=== PATIENT | male | born 1930 | race Caucasian/White ===

== ENCOUNTER 2016-12-13 19:58 | Inpatient (IN) | payer MEDICARE, OTHER ==
[~2016-12-13] VITALS: Ht 172.7 cm; Wt 81.7 kg
[2016-12-13] MEDS ORDERED: morphine 4 MG/ML VIAL IV STA (20:19)
[2016-12-13] MEDS ORDERED: ALLO300T2 PO (20:38)
[2016-12-13] MEDS ORDERED: TAMS0.4C2 PO (20:39)
[2016-12-13] MEDS ORDERED: ERGO500037 PO (20:39)
[2016-12-13] MEDS ORDERED: TRAM-40 PO (20:40)
[2016-12-13] MEDS ORDERED: GABA300C16 PO (20:40)
[2016-12-13] MEDS ORDERED: DULR PR (20:41)
[2016-12-13] MEDS ORDERED: FINA5TAB4 PO (20:41)
[2016-12-13] MEDS ORDERED: APIX5TAB PO (20:43)
[2016-12-13] MEDS ORDERED: OMEG1CAP2 PO (20:43)
[2016-12-13] MEDS ORDERED: LATA2.5D2 LEFT EYE (20:44)
[2016-12-13] MEDS ORDERED: PRD1OP5 RIGHT EYE (20:45)
[2016-12-13 20:47] LABS: ADD SCAN DIFF NO
[2016-12-13 20:48] LABS: BASOPHILS % 0.3 % (0.0-2.0); EOSINOPHILS % 0.1 % (0.0-7.0); HEMATOCRIT 46.3 % (42.0-52.0); HEMOGLOBIN 15.7 g/dl (14.0-18.0); LYMPHOCYTES # 1.7 10^3/ul (0.8-2.9); LYMPHOCYTES % 17.7 % (15.0-51.0); MEAN CORPUSCULAR HGB CONC 33.9 g/dl (32.0-37.0); MEAN CORPUSCULAR VOLUME 100.2 fl (82.0-101.0); MEAN PLATELET VOLUME 12.4 fl (7.4-10.4); MONOCYTE # 0.9 10^3/ul (0.3-0.9); MONOCYTES % 9.1 % (0.0-11.0); NEUTROPHIL # 6.8 10^3/ul (1.6-7.5); NEUTROPHILS % 72.4 % (39.0-77.0); PLATELET COUNT 117 10^3/UL (140-415); RED BLOOD COUNT 4.62 10^6/ul (4.70-6.10); RED CELL DISTRIBUTION WIDTH 15.3 % (11.5-14.5); WHITE BLOOD COUNT 9.3 10^3/ul (4.8-10.8)
[2016-12-13 20:58] LABS: INR 1.52; POTASSIUM 4.8 mmol/L (3.5-5.1); PROTIME 18.4 Sec (12.2-14.2); PT RATIO 1.4
[2016-12-13 20:59] LABS: PARTIAL THROMBOPLASTIN TIME 34.7 Sec (25.0-35.0)
[2016-12-13 21:00] LABS: CREATININE 1.54 mg/dl (0.61-1.24)
[2016-12-13 21:01] LABS: CALCIUM 9.4 mg/dl (8.4-10.2)
--- NOTE | 2016-12-13 21:05 | RADRPT ---
PROCEDURE: XR Chest. CLINICAL INDICATION: Chest pain. TECHNIQUE: Single frontal view. COMPARISON: 02/19/2009. FINDINGS: There is mild atelectasis or scarring at the lung bases. The lungs are otherwise clear. The heart is enlarged. There is calcification in the aorta consistent with atherosclerosis. There is no pleural effusion. There is no pneumothorax. IMPRESSION: 1. Mild atelectasis or scarring at the lung bases. 2. Cardiomegaly and atherosclerosis. RPTAT: QQ .Pelon Ardon MD, MD Date Time Electronically viewed and signed by .Pelon Ardon MD, MD on 12/13/2016 21:05 .R/
[2016-12-13 21:12] LABS: TROPONIN-I 0.018 ng/ml (0.00-0.12)
--- NOTE | 2016-12-13 21:36 | RADRPT ---
PROCEDURE: XR Right Hip. CLINICAL INDICATION: Trauma. Right hip pain. TECHNIQUE: Two views. Frontal and lateral. COMPARISON: No prior studies are available for comparison. FINDINGS: There is an acute subcapital fracture of the right hip with mild angulation and displacement. There is no other fracture and there is no dislocation. Vascular calcifications are present consistent with atherosclerosis. Articular surfaces are intact. There is no lytic or blastic lesion. There is no radiopaque foreign body. IMPRESSION: 1. Acute subcapital fracture of the right hip with mild angulation and displacement. 2. Atherosclerosis. RPTAT: QQ .Pelon Ardon MD, MD Date Time Electronically viewed and signed by .Pelon Ardon MD, MD on 12/13/2016 21:36 .R/
--- NOTE | 2016-12-13 21:51 | ERA ---
ER Documentation Chief Complaint Date/Time DATE: 12/13/16 TIME: 21:49 Chief Complaint S/P fall, pt c/c right leg pain HPI This is an 86-year-old male presents to the emergency room for evaluation of right-sided leg pain after a ground-level fall he had this morning. The patient denies any head injury loss of consciousness. The patient states that he is having an achy pain in the right hip worse with movement of the hip. The patient is unable to give a detailed history, and most of the history is obtained from the patient's daughter who is at bedside. ROS All systems reviewed and are negative except as per history of present illness. Medications Home Meds Reported Medications Prednisolone Acetate* (Pred Forte*) 5 Ml Susp, 1 DROP RIGHT EYE DAILY, EA 12/13/16 Latanoprost (Latanoprost) 2.5 Ml Drops, 1 DROP LEFT EYE QHS, #1 BOTTLE 12/13/16 Apixaban* (Eliquis*) 5 Mg Tablet, 5 MG PO BID, TAB 12/13/16 Snook-3 Acid Ethyl Esters (Lovaza) 1 Gm Capsule, 1 GM PO BID, CAP 12/13/16 Finasteride* (Finasteride*) 5 Mg Tablet, 5 MG PO DAILY, TAB 12/13/16 Bisacodyl* (Bisacodyl*) 10 Mg Supp, 10 MG DC DAILY, SUPP 12/13/16 Gabapentin* (Gabapentin*) 300 Mg Capsule, 300 MG PO QHS, #30 CAP 12/13/16 Tramadol Hcl* (Ultram*) 50 Mg Tablet, 50 MG PO Q6H Y for PAIN, TAB 12/13/16 Ergocalciferol (Vitamin D2) (VITAMIN D2) 50,000 Unit Capsule, 02853 UNIT PO Q7D , CAP 12/13/16 Tamsulosin Hcl* (Tamsulosin Hcl*) 0.4 Mg Cap.er.24h, 0.4 MG PO DAILY, CAP 12/13/16 Allopurinol* (Allopurinol*) 300 Mg Tablet, 300 MG PO DAILY, TAB 12/13/16 Allergies Allergies: Coded Allergies: No Known Allergy (Verified , 12/13/16) PMhx/Soc History of Surgery: Yes (Appendectomy ) Hx Neurological Disorder: Yes (Stroke about 15 y) Hx Respiratory Disorders: Yes (PNU) Hx Cardiac Disorders: Yes (silent IA) Hx Alcohol Use: Yes (occasional) Hx Substance Use: No Hx Tobacco Use: Yes (pack a day) Smoking Status: Current every day smoker Physical Exam Vitals Vital Signs Date Time Temp Pulse Resp B/P Pulse Ox O2 Delivery O2 Flow Rate FiO2 12/13/16 20:05 98.6 78 20 152/70 100 Physical Exam INITIAL VITAL SIGNS: Reviewed by me GENERAL: The patient is well developed and appropriate for usual state of health in no apparent distress HEENT: Right corneal clouding, left pupils reactive, EOMI. There is no scleral icterus. NECK: C-spine is soft and supple, there is no meningismus. There is no cervical lymphadenopathy. LUNGS: Clear to auscultation bilaterally. There are no rales, wheezes or rhonchi. HEART: Regular rate and rhythm, no murmurs, clicks, rubs or gallops. ABDOMEN: Soft, non-tender, non-distended. There are bowel sounds in all four quadrants. No rebound or guarding. EXTREMITIES: External rotation of right lower extremity there is no peripheral cyanosis or edema. No focal swelling or erythema. NEUROLOGICAL: The patient moves all four extremities with 5/5 strength. Cranial nerves II - XII are intact. Normal gait. Alert and oriented SKIN: There is no apparent rash or petechiae. HEME/LYMPHATIC: There is no evidence of excessive bruising or lymphedema. PSYCHIATRIC: The patient does not appear anxious or depressed. Result Diagram: 12/13/16200412/13/162004 Results 24 hrs Laboratory Tests Test 12/13/16 20:05 White Blood Count 9.310^3/ul Red Blood Count 4.6210^6/ul Hemoglobin 15.7g/dl Hematocrit 46.3% Mean Corpuscular Volume 100.2fl Mean Corpuscular Hemoglobin 34.0pg Mean Corpuscular Hemoglobin Concent 33.9g/dl Red Cell Distribution Width 15.3% Platelet Count 58931^3/UL Mean Platelet Volume 12.4fl Neutrophils % 72.4% Lymphocytes % 17.7% Monocytes % 9.1% Eosinophils % 0.1% Basophils % 0.3% Nucleated Red Blood Cells % 0.0/100WBC Neutrophils # 6.810^3/ul Lymphocytes # 1.710^3/ul Monocytes # 0.910^3/ul Eosinophils # 0.010^3/ul Basophils # 0.010^3/ul Nucleated Red Blood Cells # 0.010^3/ul Prothrombin Time 18.4Sec Prothrombin Time Ratio 1.4 INR International Normalized Ratio 1.52 Activated Partial Thromboplast Time 34.7Sec Sodium Level 137mmol/L Potassium Level 4.8mmol/L Chloride Level 104mmol/L Carbon Dioxide Level 21mmol/L Anion Gap 17 Blood Urea Nitrogen 28mg/dl Creatinine 1.54mg/dl Glucose Level 118mg/dl Calcium Level 9.4mg/dl Troponin I 0.018ng/ml Current Medications Medications (Trade) Dose Ordered Sig/Carina Route PRN Reason Start Time Stop Time Status Last Admin Dose Admin Morphine Sulfate (morphine) 4 mg ONCE STAT IV 12/13/16 20:19 12/13/16 20:20 DC 12/13/16 20:44 Ondansetron HCl (Zofran Inj) 4 mg BRIDGE ORDER PRN IV NAUSEA AND/OR VOMITING 12/13/16 22:00 12/14/16 21:59 Acetaminophen (Tylenol Tab) 650 mg ER BRIDGE PRN PO MILD PAIN/FEVER 12/13/16 22:00 12/14/16 21:59 Procedures/MDM EKG: Rate/Rhythm: [Normal Sinus Rhythm] QRS, ST, T-waves: [No changes consistent w/ acute ischemia] Impression: [No evidence of ischemia or arrhythmia] Chest X-ray 1V Interpreted by me: Soft Tissue: No acute abnormalities Bones: No acute abnormalities Mediastinum/Cardiac Silhouette/Lungs: [No acute abnormalities] X-ray Hip 2V Interpreted by me: Bones: Right-sided subcapital fracture Joints: [No dislocation] Foreign body: [None] This 86-year-old male presents to the emergency room for evaluation of right- sided leg pain after a ground-level fall. This patient did have an externally rotated leg on my examination. I did obtain lab work and x-ray of the hip which did confirm my suspicion of a right-sided hip fracture. This patient does have a subcapital hip fracture. He is on Xarelto at this time for a DVT on the left lower extremity. This patient is hemodynamically stable at this time. He will be placed in for admission at this time on her [facility] floor under the care of Dr. carrillo. I have contacted our orthopedic surgeon try on baster, Dr. Woody who agrees to evaluate this patient. I have relayed this patient's information to the family members were at bedside and they are in agreement with her disposition for admission at this time. Departure Diagnosis: Primary Impression: Subcapital fracture of neck of right femur Additional Impressions: Fall with significant injury Renal insufficiency Condition: BRENDAN Chopra DO Dec 13, 2016 21:51
[2016-12-13] MEDS ORDERED: ONDANSETRON 4 MG INJ IV PRN (22:00)
[2016-12-13] MEDS ORDERED: ACETAMINOPHEN 325 MG TAB PO PRN (22:00)
[2016-12-13 23:53] VITALS: TEMP 98.6
[2016-12-14 00:40] VITALS: Ht 172.7 cm; Wt 81.7 kg
[2016-12-14 00:45] VITALS: BP 132/63; PULSE 68; RESP 18
[2016-12-14] MEDS ORDERED: traMADol 50 MG TAB PO PRN (01:30)
[2016-12-14] MEDS ORDERED: ONDANSETRON 4 MG INJ IV PRN (01:30)
[2016-12-14] MEDS: morphine 2 MG INJ IV PRN ×3 (02:13→20:21)
[2016-12-14] MEDS ORDERED: BISACODYL 10 MG SUPP PR PRN (03:30)
[2016-12-14] MEDS: NICOTINE (21 MG/24 HR) PATCH TRANSDERM SCH (04:40)
[2016-12-14 05:09] LABS: ADD SCAN DIFF NO
[2016-12-14 05:18] LABS: BASOPHIL # 0.1 10^3/ul (0.0-0.1); BASOPHILS % 0.5 % (0.0-2.0); EOSINOPHILS # 0.2 10^3/ul (0.0-0.5); EOSINOPHILS % 1.6 % (0.0-7.0); HEMATOCRIT 40.2 % (42.0-52.0); HEMOGLOBIN 13.5 g/dl (14.0-18.0); LYMPHOCYTES # 2.6 10^3/ul (0.8-2.9); LYMPHOCYTES % 27.9 % (15.0-51.0); MEAN CORPUSCULAR HEMOGLOBIN 34.2 pg (29.0-33.0); MEAN CORPUSCULAR HGB CONC 33.6 g/dl (32.0-37.0); MEAN CORPUSCULAR VOLUME 101.8 fl (82.0-101.0); MONOCYTES % 10.9 % (0.0-11.0); NEUTROPHIL # 5.5 10^3/ul (1.6-7.5); NEUTROPHILS % 58.7 % (39.0-77.0); PLATELET COUNT 111 10^3/UL (140-415); RED BLOOD COUNT 3.95 10^6/ul (4.70-6.10); RED CELL DISTRIBUTION WIDTH 15.2 % (11.5-14.5); WHITE BLOOD COUNT 9.4 10^3/ul (4.8-10.8)
[2016-12-14 05:33] LABS: INR 1.52; PROTIME 18.4 Sec (12.2-14.2); PT RATIO 1.4
[2016-12-14 05:34] LABS: ALBUMIN 3.4 g/dl (3.3-4.9); PARTIAL THROMBOPLASTIN TIME 37.8 Sec (25.0-35.0); POTASSIUM 4.7 mmol/L (3.5-5.1)
[2016-12-14 05:36] LABS: CREATININE 1.85 mg/dl (0.61-1.24)
[2016-12-14 05:37] LABS: ALBUMIN/GLOBULIN RATIO 1.25; BILIRUBIN,INDIRECT 0.6 mg/dl (0-1.1); BILIRUBIN,TOTAL 0.6 mg/dl (0.2-1.3); CALCIUM 8.9 mg/dl (8.4-10.2); PHOSPHORUS 4.5 mg/dl (2.5-4.9); TOTAL PROTEIN 6.1 g/dl (6.1-8.1)
[2016-12-14 05:38] LABS: MAGNESIUM 1.7 mg/dl (1.7-2.5)
[2016-12-14 05:48] LABS: TROPONIN-I 0.034 ng/ml (0.00-0.12)
[2016-12-14 06:00] LABS: CK-MB 3.66 ng/ml (0.0-2.4)
[2016-12-14 08:08] VITALS: BP 125/61; RESP 16
--- NOTE | 2016-12-14 08:48 | HP ---
Date/Time of Note Date/Time of Note DATE: 12/14/16 TIME: 08:40 Assessment/Plan VTE Prophylaxis VTE Prophylaxis Intervention: other (eliquis) Lines/Catheters IV Catheter Type (from Nrs): Saline Lock Assessment/Plan Assessment/Plan IMPRESSION 1. Right HIP fracture s/p GLF 2. History of CVA 3. History of BPH 4. History of CKD 5. 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 History of CKD PLAN - Awaiting Ortho Eval (Dr. Woody) - Pain mgmt - Cardiology consult for clearance - Will keep NPO after breakfast until seen by Ortho - Will decrease his home dose of eliquis given renal insufficiency - avoid nephrotoxins HPI/ROS Admit Date/Time Admit Date/Time Dec 13, 2016 at 21:47 Hx of Present Illness This is an 86-year-old male with hx of CVA, BPH, CKD, TN, CKD who presents to the emergency room for evaluation of right-sided leg pain after a ground-level fall he had this morning. The patient denies any head injury loss of consciousness. The patient states that he is having an achy pain in the right hip worse with movement of the hip. In the ER, imaging showed Right Hip fracture. . PMH/Family/Social Social History Smoking Status: Current every day smoker Exam/Review of Systems Vital Signs Vitals Vital Signs Date Time Temp Pulse Resp B/P Pulse Ox O2 Delivery O2 Flow Rate FiO2 12/14/16 08:08 97.9 69 16 125/61 93 12/13/16 23:53 Room Air Intake and Output 12/13/16 12/13/16 12/14/16 15:00 23:00 07:00 Intake Total 480 ml Output Total 300 ml Balance 180 ml Exam Constitutional: other (sleepy but arousable. no acute distress) Head: atraumatic, normocephalic Eyes: EOMI, PERRL Respiratory: clear to auscultation, normal air movement Cardiovascular: regular rate and rhythm Gastrointestinal: non-tender, soft Extremities: other (right hip tenderness) Labs Result Diagram: 12/14/16 0435 12/14/16 0435 Medications Medications Current Medications Allopurinol (Zyloprim) 300 mg DAILY PO ; Start 12/14/16 at 09:00 Ergocalciferol (Drisdol) 50,000 unit Q7D PO ; Start 12/14/16 at 09:00 Finasteride (Proscar) 5 mg DAILY PO ; Start 12/14/16 at 09:00 Gabapentin (Neurontin) 300 mg QHS PO ; Start 12/14/16 at 21:00 Latanoprost (Xalatan) 1 drop QHS LEFT EYE ; Start 12/14/16 at 21:00 Prednisolone Acetate (Pred-Forte 1%) 1 drop DAILY RIGHT EYE ; Start 12/14/16 at 09:00 Tamsulosin HCl (Flomax) 0.4 mg DAILY@21 PO ; Start 12/14/16 at 21:00 Tramadol HCl (Ultram) 50 mg Q6H PRN PO PAIN; Start 12/14/16 at 01:30 Nicotine (Nicoderm 21 Mg/ 24hr) 1 patch DAILY TRANSDERM Last administered on t 04:40; Admin Dose 1 PATCH; Start 12/14/16 at 09:00 Morphine Sulfate (morphine) 2 mg Q4H PRN IV PAIN Last administered on 12/14/16 02:13; Admin Dose 2 MG; Start 12/14/16 at 01:30 Ondansetron HCl (Zofran Inj) 4 mg Q6H PRN IV NAUSEA AND/OR VOMITING; Start 12/14 at 01:30 Apixaban (Eliquis) 5 mg DAILY PO ; Start 12/14/16 at 09:00 Bisacodyl (Dulcolax Supp) 10 mg DAILY PRN DC CONSTIPATION; Start 12/14/16 at 03: 30 Fish Oil (Fish Oil) 1,000 mg BID PO ; Start 12/14/16 at 09:00 NAM LANDRY MD Dec 14, 2016 08:47
[2016-12-14] MEDS: APIXABAN 5 MG TABLET PO SCH (09:00)
[2016-12-14] MEDS ORDERED: ERGOCALCIFEROL 50,000 UNIT CAP PO SCH (09:00)
[2016-12-14] MEDS ORDERED: FISH OIL 1,000 MG CAP PO SCH (09:00)
[2016-12-14] MEDS: FINASTERIDE 5 MG TAB PO SCH (09:51)
[2016-12-14] MEDS: ALLOPURINOL 300 MG TAB PO SCH (09:51)
[2016-12-14] MEDS: PREDNISOLONE ACET 1% 5 ML OPH RIGHT EYE SCH (09:53)
--- NOTE | 2016-12-14 10:13 | PN ---
Date/Time of Note Date/Time of Note DATE: 12/14/16 TIME: 10:08 Assessment/Plan VTE Prophylaxis VTE Prophylaxis Intervention: other Lines/Catheters IV Catheter Type (from Rust): Saline Lock Assessment/Plan Problems: (1) BPH (benign prostatic hyperplasia) Status: Chronic Comment: We will check postvoid residual. Qualifiers: Prostatic enlargement morphology: unspecified morphology Lower urinary tract symptom presence: presence of symptoms unspecified Qualified Code: N40.0 - Benign prostatic hyperplasia, presence of lower urinary tract symptoms unspecified, unspecified morphology (2) History of photovaporization of prostate Status: Chronic Comment: Noted. (3) Chronic kidney disease, stage 3 Status: Chronic Comment: He has been stable. Please note that historically he has had worse renal function of this hospital in 2008. From this perspective he is clear to proceed with surgical repair of the hip (4) Alcohol abuse Status: Chronic Comment: He has been 8 days since his last cocktail. He will be placed on thiamine, and will observe for any signs of withdrawal which I doubt that we will have an issue with (5) Peripheral vascular disease Status: Chronic Comment: Noted. This is not activated and or an indication to not proceed with surgery. According family had a full cardiac workup 2 years ago that was negative. (6) Deep vein thrombosis (DVT) of left lower extremity Onset Date: ~ 12/03/2016 Status: Acute Comment: He had been on Eliquis which is why stopped his alcohol. He had a mechanical ground-level fall with a hip fracture. I will hold the Eliquis in preparation for him to have surgery tomorrow. After that he will resume his Eliquis renally dose adjusted Qualifiers: Affected thrombotic vein of extremity: tibial Chronicity: acute Qualified Code: I82.442 - Acute deep vein thrombosis (DVT) of tibial vein of left lower extremity (7) Subcapital fracture of neck of right femur Status: Acute Comment: He will be seen by orthopedics today. Spine for seasonal opinion that he is clear for surgery Qualifiers: Encounter type: initial encounter Fracture type: closed Qualified Code: S72.011A - Subcapital fracture of neck of right femur, closed, initial encounter (8) Tobacco abuse Status: Chronic Comment: Notable keep an eye on this. Please note he has had no symptoms or signs to suggest chronic lung disease. He has been counseled on discontinuation of smoking rationale risks benefits and goals (9) Hyperlipidemia Status: Chronic Comment: On treatment Qualifiers: Hyperlipidemia type: mixed hyperlipidemia Qualified Code: E78.2 - Mixed hyperlipidemia Subjective 24 Hr Interval Summary Free Text/Dictation Patient and family at bedside translating for this gentleman who speaks [place] Citizen and [place]ian. Please note that 2 of the 3 children are MDs, and extremely helpful and cooperative Constitutional: no complaints Respiratory: no complaints Cardiovascular: no complaints Gastrointestinal: no complaints Genitourinary: no complaints Exam/Review of Systems Vital Signs Vitals Vital Signs Date Time Temp Pulse Resp B/P Pulse Ox O2 Delivery O2 Flow Rate FiO2 12/14/16 08:08 97.9 69 16 125/61 93 12/13/16 23:53 Room Air Intake and Output 12/13/16 12/13/16 12/14/16 15:00 23:00 07:00 Intake Total 480 ml Output Total 300 ml Balance 180 ml Exam Constitutional: alert, oriented Neck: non-tender, supple Respiratory: clear to auscultation, normal air movement Cardiovascular: nl pulses, regular rate and rhythm Results Result Diagram: 12/14/16 0435 12/14/16 0435 Results 24 hrs Laboratory Tests Test 12/13/16 20:05 12/14/16 04:35 White Blood Count 9.3 9.4 Red Blood Count 4.62 L 3.95 L Hemoglobin 15.7 13.5 L Hematocrit 46.3 40.2 L Mean Corpuscular Volume 100.2 101.8 H Mean Corpuscular Hemoglobin 34.0 H 34.2 H Mean Corpuscular Hemoglobin Concent 33.9 33.6 Red Cell Distribution Width 15.3 H 15.2 H Platelet Count 117 L 111 L Mean Platelet Volume 12.4 H 12.0 H Neutrophils % 72.4 58.7 Lymphocytes % 17.7 27.9 Monocytes % 9.1 10.9 Eosinophils % 0.1 1.6 Basophils % 0.3 0.5 Nucleated Red Blood Cells % 0.0 0.0 Neutrophils # 6.8 5.5 Lymphocytes # 1.7 2.6 Monocytes # 0.9 1.0 H Eosinophils # 0.0 0.2 Basophils # 0.0 0.1 Nucleated Red Blood Cells # 0.0 0.0 Prothrombin Time 18.4 H 18.4 H Prothrombin Time Ratio 1.4 1.4 INR International Normalized Ratio 1.52 1.52 Activated Partial Thromboplast Time 34.7 37.8 H Sodium Level 137 140 Potassium Level 4.8 4.7 Chloride Level 104 107 Carbon Dioxide Level 21 24 Anion Gap 17 H 14 Blood Urea Nitrogen 28 H 34 H Creatinine 1.54 H 1.85 H Glucose Level 118 91 Calcium Level 9.4 8.9 Troponin I 0.018 0.034 Phosphorus Level 4.5 Magnesium Level 1.7 Total Bilirubin 0.6 Direct Bilirubin 0.00 Indirect Bilirubin 0.6 Aspartate Amino Transf (AST/SGOT) 36 Alanine Aminotransferase (ALT/SGPT) 51 Alkaline Phosphatase 92 Creatine Kinase 390 H Creatine Kinase Index 0.9 Creatinine Kinase MB (Mass) 3.66 H Total Protein 6.1 Albumin 3.4 Globulin 2.70 Albumin/Globulin Ratio 1.25 Medications Medications Current Medications Allopurinol (Zyloprim) 300 mg DAILY PO Last administered on 12/14/16 09:51; Admin Dose 300 MG; Start 12/14/16 at 09:00 Ergocalciferol (Drisdol) 50,000 unit Q7D PO Last administered on 12/14/16 09:51 ; Admin Dose 50,000 UNIT; Start 12/14/16 at 09:00 Finasteride (Proscar) 5 mg DAILY PO Last administered on 12/14/16 09:51; Admin Dose 5 MG; Start 12/14/16 at 09:00 Gabapentin (Neurontin) 300 mg QHS PO ; Start 12/14/16 at 21:00 Latanoprost (Xalatan) 1 drop QHS LEFT EYE ; Start 12/14/16 at 21:00 Prednisolone Acetate (Pred-Forte 1%) 1 drop DAILY RIGHT EYE Last administered on 12/14/16 09:53; Admin Dose 1 DROP; Start 12/14/16 at 09:00 Tamsulosin HCl (Flomax) 0.4 mg DAILY@21 PO ; Start 12/14/16 at 21:00 Tramadol HCl (Ultram) 50 mg Q6H PRN PO PAIN; Start 12/14/16 at 01:30 Nicotine (Nicoderm 21 Mg/ 24hr) 1 patch DAILY TRANSDERM Last administered on 04:40; Admin Dose 1 PATCH; Start 12/14/16 at 09:00 Morphine Sulfate (morphine) 2 mg Q4H PRN IV PAIN Last administered on 12/14/16 02:13; Admin Dose 2 MG; Start 12/14/16 at 01:30 Ondansetron HCl (Zofran Inj) 4 mg Q6H PRN IV NAUSEA AND/OR VOMITING; Start 12/14 at 01:30 Apixaban (Eliquis) 5 mg DAILY PO ; Start 12/14/16 at 09:00 Bisacodyl (Dulcolax Supp) 10 mg DAILY PRN MA CONSTIPATION; Start 12/14/16 at 03: 30 Fish Oil (Fish Oil) 1,000 mg BID PO Last administered on 12/14/16 09:51; Admin Dose 1,000 MG; Start 12/14/16 at 09:00 FELISHA GROSS MD Dec 14, 2016 10:13
[2016-12-14 12:07] LABS: TROPONIN-I 0.019 ng/ml (0.00-0.12)
[2016-12-14 12:15] LABS: CK-MB 3.16 ng/ml (0.0-2.4)
[2016-12-14] MEDS: THIAMINE 100 MG TAB PO SCH (12:54)
[2016-12-14] MEDS: BISACODYL (EC) 5 MG TAB PO PRN (16:51)
--- NOTE | 2016-12-14 18:25 | CONS ---
DATE OF ADMISSION: 12/13/2016 DATE OF CONSULTATION: 12/14/2016 HISTORY OF PRESENT ILLNESS: The patient is an 86-year-old male who was admitted through the emergen cy room on 12/13/2016, when he was brought into the emergency room because of the painful limit of m otion involving his right hip. According to available information, he obviously had sustained an in jury to his right hip when he had a ground-level fall, landing on his right buttock. Following the fall, he was having severe pain and was not able to stand up or walk. He was ambulatory prior to th is injury. He has multiple medical problems including history of CVA, BPH, CKD, IN. PHYSICAL EXAMINATION: GENERAL: My examination revealed an 86-year-old male who was not in any acute distress. MUSCULOSKELETAL: There was tenderness and swelling around the right hip. There was a mild shorteni ng and external rotation of the right lower extremity. Range of motion of the right hip was not gabriella brandon because of the obvious pain. There were no signs of acute neurovascular compromise involving th e right lower extremity. IMAGING: X-rays of the right hip revealed the presence of obvious subcapital femoral neck fracture which is displaced and angulated. TREATMENT PLAN: To carry out the hemiarthroplasty of the right hip as soon as he can be medically c leared for surgery. Dictated By: RENE REESE/CHAYO Conf#: [id number] DID#: [id number]
--- NOTE | 2016-12-14 18:32 | CONS ---
Date/Time of Note Date/Time of Note DATE: 12/14/16 TIME: 18:23 Assessment/Plan Assessment/Plan Chief Complaint/Hosp Course Assessment: Pre-operative cardiac evaluation - planned for hip surgery Status post mechanical fall Acute rip hip fracture Recent left lower extremity deep vein thrombosis Abnormal EKG - RBBB and LAFB, but no acute ischemic changes History of myocardial infarction - details unknown, denies prior coronary stenting or angioplasty History of stroke Chronic kidney disease Benign prostate hyperplasia Recommendations: -intermediate cardiac risk patient planned for moderate cardiac risk procedure -no evidence of unstable cardiac condition, no additional cardiac work up recommended prior to planned surgery -resume Eliquis when able to post-operatively Problems: Consultation Date/Type/Reason Admit Date/Time Dec 13, 2016 at 21:47 Type of Consultation: Cardiology Reason for Consultation pre-operative evaluation Hx of Present Illness The patient is an 86 year-old male who presents status post fall and is found to have an acute right hip fracture. Per the patient and his family at bedside, he was taking off his pajamas to go to the bathroom when he lost his balance and fell. They deny lightheadedness, syncope, or palpitations associated with the incident. The patient denies chest pain or shortness of breath. Per medical records, the patient has a reported history of myocardial infarction. However, the patient and his family is uncertain about this and denies any prior coronary stenting or angioplasty. He was recently hospitalized at [facility] two weeks ago and diagnosed with a left lower extremity deep vein thrombosis. He was started on Eliquis at that time. 14 point review of systems negative other than per HPI. Past Medical History Recent left lower extremity deep vein thrombosis History of myocardial infarction - details unknown History of stroke Chronic kidney disease Benign prostate hyperplasia Past Surgical History Past Surgical Hx: appendectomy Family History Significant Family History: no pertinent family hx (noncontributory given advanced age) Social History Smoking Status: Current every day smoker Exam/Review of Systems Vital Signs Vitals Vital Signs Date Time Temp Pulse Resp B/P Pulse Ox O2 Delivery O2 Flow Rate FiO2 12/14/16 08:08 97.9 69 16 125/61 93 12/13/16 23:53 Room Air Intake and Output 12/13/16 12/13/16 12/14/16 15:00 23:00 07:00 Intake Total 480 ml Output Total 300 ml Balance 180 ml Exam Constitutional: alert, well developed Psych: nl mood/affect, no complaints Head: atraumatic, normocephalic Eyes: nl conjunctiva, nl lids ENMT: nl external ears & nose, nl nasal mucosa & septum Neck: non-tender, supple, No jvd Respiratory: clear to auscultation, normal air movement Cardiovascular: regular rate and rhythm, No murmurs/extra sounds Gastrointestinal: non-tender, soft Extremities: No clubbing, No cyanosis, No edema Results Result Diagram: 12/14/16 0435 12/14/16 0435 Results 24 hrs Laboratory Tests Test 12/13/16 20:05 12/14/16 04:35 12/14/16 11:17 White Blood Count 9.3 9.4 Red Blood Count 4.62 L 3.95 L Hemoglobin 15.7 13.5 L Hematocrit 46.3 40.2 L Mean Corpuscular Volume 100.2 101.8 H Mean Corpuscular Hemoglobin 34.0 H 34.2 H Mean Corpuscular Hemoglobin Concent 33.9 33.6 Red Cell Distribution Width 15.3 H 15.2 H Platelet Count 117 L 111 L Mean Platelet Volume 12.4 H 12.0 H Neutrophils % 72.4 58.7 Lymphocytes % 17.7 27.9 Monocytes % 9.1 10.9 Eosinophils % 0.1 1.6 Basophils % 0.3 0.5 Nucleated Red Blood Cells % 0.0 0.0 Neutrophils # 6.8 5.5 Lymphocytes # 1.7 2.6 Monocytes # 0.9 1.0 H Eosinophils # 0.0 0.2 Basophils # 0.0 0.1 Nucleated Red Blood Cells # 0.0 0.0 Prothrombin Time 18.4 H 18.4 H Prothrombin Time Ratio 1.4 1.4 INR International Normalized Ratio 1.52 1.52 Activated Partial Thromboplast Time 34.7 37.8 H Sodium Level 137 140 Potassium Level 4.8 4.7 Chloride Level 104 107 Carbon Dioxide Level 21 24 Anion Gap 17 H 14 Blood Urea Nitrogen 28 H 34 H Creatinine 1.54 H 1.85 H Glucose Level 118 91 Calcium Level 9.4 8.9 Troponin I 0.018 0.034 0.019 Phosphorus Level 4.5 Magnesium Level 1.7 Total Bilirubin 0.6 Direct Bilirubin 0.00 Indirect Bilirubin 0.6 Aspartate Amino Transf (AST/SGOT) 36 Alanine Aminotransferase (ALT/SGPT) 51 Alkaline Phosphatase 92 Creatine Kinase 390 H 317 H Creatine Kinase Index 0.9 1.0 Creatinine Kinase MB (Mass) 3.66 H 3.16 H Total Protein 6.1 Albumin 3.4 Globulin 2.70 Albumin/Globulin Ratio 1.25 Medications Medications Current Medications Allopurinol (Zyloprim) 300 mg DAILY PO Last administered on 12/14/16 09:51; Admin Dose 300 MG; Start 12/14/16 at 09:00 Ergocalciferol (Drisdol) 50,000 unit Q7D PO Last administered on 12/14/16 09:51 ; Admin Dose 50,000 UNIT; Start 12/14/16 at 09:00 Finasteride (Proscar) 5 mg DAILY PO Last administered on 12/14/16 09:51; Admin Dose 5 MG; Start 12/14/16 at 09:00 Gabapentin (Neurontin) 300 mg QHS PO ; Start 12/14/16 at 21:00 Latanoprost (Xalatan) 1 drop QHS LEFT EYE ; Start 12/14/16 at 21:00 Prednisolone Acetate (Pred-Forte 1%) 1 drop DAILY RIGHT EYE Last administered on 12/14/16 09:53; Admin Dose 1 DROP; Start 12/14/16 at 09:00 Tamsulosin HCl (Flomax) 0.4 mg DAILY@21 PO ; Start 12/14/16 at 21:00 Tramadol HCl (Ultram) 50 mg Q6H PRN PO PAIN; Start 12/14/16 at 01:30 Nicotine (Nicoderm 21 Mg/ 24hr) 1 patch DAILY TRANSDERM Last administered on 04:40; Admin Dose 1 PATCH; Start 12/14/16 at 09:00 Morphine Sulfate (morphine) 2 mg Q4H PRN IV PAIN Last administered on 12/14/16 12:36; Admin Dose 2 MG; Start 12/14/16 at 01:30 Ondansetron HCl (Zofran Inj) 4 mg Q6H PRN IV NAUSEA AND/OR VOMITING; Start 12/14 at 01:30 Apixaban (Eliquis) 5 mg DAILY PO ; Start 12/14/16 at 09:00; Status Future Hold Bisacodyl (Dulcolax Supp) 10 mg DAILY PRN [place] CONSTIPATION; Start 12/14/16 at 03: 30 Fish Oil (Fish Oil) 2,000 mg BID PO ; Start 12/14/16 at 21:00 Thiamine HCl 100 mg 100 mg DAILY PO Last administered on 12/14/16 12:54; Admin Dose 100 MG; Start 12/14/16 at 10:00; Stop 12/19/16 at 09:59 Dextrose/Sodium Chloride (D5-1/2ns) 1,000 ml @ 75 mls/hr [id number] IV ; Start 12/15/16 at 00:00 Bisacodyl (Dulcolax) 10 mg DAILY PRN PO CONSTIPATION Last administered on 16:51; Admin Dose 10 MG; Start 12/14/16 at 15:00 JHONY WIGGINS MD Dec 14, 2016 18:32
[2016-12-14] MEDS: FISH OIL 1,000 MG CAP PO SCH (20:20)
[2016-12-14] MEDS: GABAPENTIN 300 MG CAP PO SCH (20:20)
[2016-12-14] MEDS: TAMSULOSIN (SR) 0.4 MG CAP PO SCH (20:20)
[2016-12-14] MEDS: LATANOPROST 0.005% 2.5 ML OPH LEFT EYE SCH (20:22)
[2016-12-14 20:52] VITALS: BP 159/72; RESP 20
[2016-12-15] VITALS (16 sets, daily range): BP systolic 132–178; BP diastolic 60–105; PULSE 76–88; RESP 16–31
[2016-12-15] MEDS: DEXTROSE 5%-0.45% NACL 1,000 ML IV SCH ×2 (00:17→12:56)
[2016-12-15] MEDS: morphine 2 MG INJ IV PRN (01:01)
[2016-12-15] MEDS: morphine 4 MG/ML VIAL IV PRN ×2 (03:25→08:06)
[2016-12-15 05:07] LABS: ADD SCAN DIFF NO
[2016-12-15 05:11] LABS: BASOPHILS % 0.3 % (0.0-2.0); EOSINOPHILS # 0.1 10^3/ul (0.0-0.5); EOSINOPHILS % 0.9 % (0.0-7.0); HEMATOCRIT 41.1 % (42.0-52.0); HEMOGLOBIN 13.7 g/dl (14.0-18.0); LYMPHOCYTES % 20.8 % (15.0-51.0); MEAN CORPUSCULAR HEMOGLOBIN 33.7 pg (29.0-33.0); MEAN CORPUSCULAR HGB CONC 33.3 g/dl (32.0-37.0); MEAN CORPUSCULAR VOLUME 101.2 fl (82.0-101.0); MEAN PLATELET VOLUME 12.8 fl (7.4-10.4); MONOCYTE # 0.9 10^3/ul (0.3-0.9); MONOCYTES % 8.9 % (0.0-11.0); NEUTROPHIL # 6.5 10^3/ul (1.6-7.5); NEUTROPHILS % 68.7 % (39.0-77.0); PLATELET COUNT 132 10^3/UL (140-415); RED BLOOD COUNT 4.06 10^6/ul (4.70-6.10); RED CELL DISTRIBUTION WIDTH 15.1 % (11.5-14.5); WHITE BLOOD COUNT 9.5 10^3/ul (4.8-10.8)
[2016-12-15 05:36] LABS: POTASSIUM 4.4 mmol/L (3.5-5.1)
[2016-12-15 05:39] LABS: CALCIUM 8.9 mg/dl (8.4-10.2); CREATININE 1.39 mg/dl (0.61-1.24)
[2016-12-15] MEDS: FISH OIL 1,000 MG CAP PO SCH ×2 (07:31→21:00)
[2016-12-15] MEDS: FINASTERIDE 5 MG TAB PO SCH (07:32)
[2016-12-15] MEDS: THIAMINE 100 MG TAB PO SCH (07:32)
[2016-12-15] MEDS: ALLOPURINOL 300 MG TAB PO SCH (07:32)
[2016-12-15] MEDS: PREDNISOLONE ACET 1% 5 ML OPH RIGHT EYE SCH (08:42)
[2016-12-15] MEDS: NICOTINE (21 MG/24 HR) PATCH TRANSDERM SCH (08:42)
--- NOTE | 2016-12-15 09:51 | PN ---
Date/Time of Note Date/Time of Note DATE: 12/15/16 TIME: 09:48 Assessment/Plan VTE Prophylaxis VTE Prophylaxis Intervention: other Lines/Catheters IV 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 Continue to observe. I do not believe he has a Warnicke situation but he is on thiamine. (2) Alcohol abuse Status: Chronic Comment: He is receiving thiamine; he is past the point time where you would expect usual emmanuel withdrawal symptoms (3) Tobacco abuse Status: Chronic Comment: Noted (4) Deep vein thrombosis (DVT) of left lower extremity Onset Date: ~ 12/03/2016 Status: Acute Comment: Anticoagulation is on hold until after surgery which point it will be resumed at renal dose adjustment Qualifiers: Affected thrombotic vein of extremity: tibial Chronicity: acute Qualified Code: I82.442 - Acute deep vein thrombosis (DVT) of tibial vein of left lower extremity (5) Chronic kidney disease, stage 3 Status: Chronic Comment: Noted and stable (6) Subcapital fracture of neck of right femur Status: Acute Comment: For surgery today Qualifiers: Encounter type: initial encounter Fracture type: closed Qualified Code: S72.011A - Subcapital fracture of neck of right femur, closed, initial encounter Subjective 24 Hr Interval Summary Free Text/Dictation Family is present and quite devoted. Translating the patient is concerned about lack of bowel movement and wants to get surgery for Constitutional: no complaints Respiratory: no complaints Cardiovascular: no complaints Gastrointestinal: constipation Exam/Review of Systems Vital Signs Vitals Vital Signs Date Time Temp Pulse Resp B/P Pulse Ox O2 Delivery O2 Flow Rate FiO2 12/15/16 07:57 97.3 80 22 135/61 94 12/13/16 23:53 Room Air Intake and Output 12/14/16 12/14/16 12/15/16 15:00 23:00 07:00 Intake Total 950 ml Balance 950 ml Exam Constitutional: alert, oriented Neck: non-tender, supple Respiratory: clear to auscultation, normal air movement Cardiovascular: nl pulses, regular rate and rhythm Gastrointestinal: bowel sounds (Normal), nl liver, spleen, non-tender, soft Results Result Diagram: 12/15/16 0425 12/15/16 0425 Results 24 hrs Laboratory Tests Test 12/14/16 11:17 12/15/16 04:25 Creatine Kinase 317 H Creatine Kinase Index 1.0 Creatinine Kinase MB (Mass) 3.16 H Troponin I 0.019 White Blood Count 9.5 Red Blood Count 4.06 L Hemoglobin 13.7 L Hematocrit 41.1 L Mean Corpuscular Volume 101.2 H Mean Corpuscular Hemoglobin 33.7 H Mean Corpuscular Hemoglobin Concent 33.3 Red Cell Distribution Width 15.1 H Platelet Count 132 L Mean Platelet Volume 12.8 H Neutrophils % 68.7 Lymphocytes % 20.8 Monocytes % 8.9 Eosinophils % 0.9 Basophils % 0.3 Nucleated Red Blood Cells % 0.0 Neutrophils # 6.5 Lymphocytes # 2.0 Monocytes # 0.9 Eosinophils # 0.1 Basophils # 0.0 Nucleated Red Blood Cells # 0.0 Sodium Level 137 Potassium Level 4.4 Chloride Level 107 Carbon Dioxide Level 23 Anion Gap 11 Blood Urea Nitrogen 26 H Creatinine 1.39 H Glucose Level 117 Calcium Level 8.9 Medications Medications Current Medications Allopurinol (Zyloprim) 300 mg DAILY PO Last administered on 12/14/16 09:51; Admin Dose 300 MG; Start 12/14/16 at 09:00 Ergocalciferol (Drisdol) 50,000 unit Q7D PO Last administered on 12/14/16 09:51 ; Admin Dose 50,000 UNIT; Start 12/14/16 at 09:00 Finasteride (Proscar) 5 mg DAILY PO Last administered on 12/14/16 09:51; Admin Dose 5 MG; Start 12/14/16 at 09:00 Gabapentin (Neurontin) 300 mg QHS PO Last administered on 12/14/16 20:20; Admin Dose 300 MG; Start 12/14/16 at 21:00 Latanoprost (Xalatan) 1 drop QHS LEFT EYE Last administered on 12/14/16 20:22; Admin Dose 1 DROP; Start 12/14/16 at 21:00 Prednisolone Acetate (Pred-Forte 1%) 1 drop DAILY RIGHT EYE Last administered on 12/15/16 08:42; Admin Dose 1 DROP; Start 12/14/16 at 09:00 Tamsulosin HCl (Flomax) 0.4 mg DAILY@21 PO Last administered on 12/14/16 20:20 ; Admin Dose 0.4 MG; Start 12/14/16 at 21:00 Tramadol HCl (Ultram) 50 mg Q6H PRN PO PAIN; Start 12/14/16 at 01:30 Nicotine (Nicoderm 21 Mg/ 24hr) 1 patch DAILY TRANSDERM Last administered on 08:42; Admin Dose 1 PATCH; Start 12/14/16 at 09:00 Ondansetron HCl (Zofran Inj) 4 mg Q6H PRN IV NAUSEA AND/OR VOMITING; Start 12/14 at 01:30 Apixaban (Eliquis) 5 mg DAILY PO ; Start 12/14/16 at 09:00; Status Future Hold Bisacodyl (Dulcolax Supp) 10 mg DAILY PRN [place] CONSTIPATION; Start 12/14/16 at 03: 30 Fish Oil (Fish Oil) 2,000 mg BID PO Last administered on 12/14/16 20:20; Admin Dose 2,000 MG; Start 12/14/16 at 21:00 Thiamine HCl 100 mg 100 mg DAILY PO Last administered on 12/14/16 12:54; Admin Dose 100 MG; Start 12/14/16 at 10:00; Stop 12/19/16 at 09:59 Dextrose/Sodium Chloride (D5-1/2ns) 1,000 ml @ 75 mls/hr [id number] IV Last administered on 12/15/16 00:17; Admin Dose 75 MLS/HR; Start 12/15/16 at 00:00 Bisacodyl (Dulcolax) 10 mg DAILY PRN PO CONSTIPATION Last administered on 16:51; Admin Dose 10 MG; Start 12/14/16 at 15:00 Morphine Sulfate (morphine) 4 mg Q4H PRN IV pain Last administered on 12/15/16 08:06; Admin Dose 4 MG; Start 12/15/16 at 03:30 FELISHA GROSS MD Dec 15, 2016 09:51
--- NOTE | 2016-12-15 15:29 | HPN ---
Date/Time of Note Date/Time of Note DATE: 12/15/16 TIME: 15:28 Interval H&P Admission Note Pt. seen H&P reviewed: No system changes JAIME VAZQUEZ MD Dec 15, 2016 15:29
[2016-12-15] MEDS ORDERED: ALBUTEROL 0.5% (NEB) 2.5 MG/0.5 ML AMP ONE (15:46)
[2016-12-15] MEDS ORDERED: ALBUTEROL/IPRATROPIUM (NEB) 3 ML AMP HHN STA (15:46)
[2016-12-15] MEDS ORDERED: LIDOCAINE 1% (MDV) 20 ML INJ ONE (15:54)
[2016-12-15] MEDS ORDERED: ETOMIDATE 20 MG INJ ONE (15:54)
[2016-12-15] MEDS ORDERED: PHENYLephrine (100 MCG/ML) 5ML SYG ONE (15:54)
[2016-12-15] MEDS ORDERED: PROPOFOL 20 ML ONE (15:54)
[2016-12-15] MEDS ORDERED: ROCURONIUM 50 MG INJ ONE (15:54)
[2016-12-15] MEDS ORDERED: ALBUTEROL 0.083% (NEB) 2.5 MG/3 ML AMP HHN STA (15:58)
[2016-12-15] MEDS ORDERED: CEFAZOLIN 1 GM INJ ONE (16:42)
[2016-12-15] MEDS ORDERED: ONDANSETRON 4 MG INJ ONE (16:51)
[2016-12-15] MEDS ORDERED: DEXAMETHASONE 4 MG/ML 1 ML INJ ONE (16:51)
[2016-12-15] MEDS ORDERED: HYDROmorphONE 2 MG/ML SYG ONE (17:10)
[2016-12-15] MEDS ORDERED: POLYMYXIN/BACITRACIN 1L IRRIG ONE (17:25)
[2016-12-15] MEDS ORDERED: ACETAMINOPHEN 1000MG/100ML IV 100 ML ONE (17:26)
[2016-12-15] MEDS ORDERED: hydrALAzine 20 MG INJ IV PRN (18:00)
[2016-12-15] MEDS ORDERED: ALBUTEROL 0.083% (NEB) 2.5 MG/3 ML AMP HHN ONE (18:00)
[2016-12-15] MEDS ORDERED: LABETALOL HCL 20MG INJ IV PRN (18:00)
[2016-12-15] MEDS ORDERED: HYDROmorphONE (0.2 MG/ML) 10ML SYG IV PRN ×2 (18:00)
[2016-12-15] MEDS ORDERED: GLYCOPYRROLATE 0.4 MG INJ ONE (18:22)
[2016-12-15] MEDS ORDERED: NEOSTIGMINE 3 MG/3 ML SYRINGE ONE (18:22)
[2016-12-15] MEDS ORDERED: LABETALOL HCL 20MG INJ ONE (18:34)
[2016-12-15] MEDS ORDERED: HYDROmorphONE 1 MG/ML SYG IM PRN (19:00)
[2016-12-15] MEDS ORDERED: NACL 0.9% 3 ML SYG IV SCH (19:00)
[2016-12-15 19:41] LABS: HEMATOCRIT 36.2 % (42.0-52.0); HEMOGLOBIN 12.4 g/dl (14.0-18.0)
--- NOTE | 2016-12-15 19:45 | OPR ---
DATE OF OPERATION: 12/15/2016 PREOPERATIVE DIAGNOSIS: Femoral neck fracture of the right hip. POSTOPERATIVE DIAGNOSIS: Femoral neck fracture of the right hip. OPERATION PERFORMED: Hemiarthroplasty of the right hip. ANESTHESIA: General anesthesia. SURGEON: Rene Vazquez MD PROCEDURE AND FINDINGS: Under general anesthesia, the patient was placed on left lateral decubitus position with the right side up. Usual prep and drape was done exposing the right hip and right kne e. The right hip was approached through the usual posterolateral oblique incision. After splitting gluteal muscles and detaching short external rotators, hip joint was entered. Exploration revealed that there indeed was a subcapital femoral neck fracture. It had a V-shaped fracture line extendin g downward. Head was removed and the measurement revealed that the size of the head is about 54 mm. After cleaning acetabular cavity, a trial reduction was carried out with the 54 mm trial bipolar c up and the fitting and stability was entirely satisfactory. After packing the acetabular cavity, at tention was then directed to the proximal femur. Initial preparation was carried out with box osteo tome and T-handled reamer, which was followed by broaching with gradually increasing size. With the size 7 broach in, trial components were assembled and the joint was reduced. After several trials, it was my impression that a size 7 stem in offset setting, connected to +8 neck, 54 mm cup was the best choice. After removing all the trial components, actual stem in the size 7 in a high-offset se tting was pounded in and this was connected to the +8 neck, 54 mm bipolar cup. Joint was reduced an d the range of motion and the stability was entirely satisfactory. After reattaching short external rotator and closing capsules, further closure was carried out using 0 Vicryl for muscle and fascia and 2-0 Vicryl for subcutaneous tissues. Final skin closure was carried out with skin cony. Usu al sterile pressure dressings were applied. The patient tolerated the entire procedure very well an d was sent to the recovery room in good condition. Dictated By: RENE VAZQUEZ MD IK/NTS Conf#: [id number] DID#: [id number] CC: NAM LANDRY MD;*EndCC*
[2016-12-15] MEDS ORDERED: D5W-0.45 NACL + KCL 10 MEQ 1,000 ML IV SCH (20:00)
[2016-12-15 20:34] LABS: POTASSIUM 5.1 mmol/L (3.5-5.1)
[2016-12-15 20:36] LABS: CREATININE 1.17 mg/dl (0.61-1.24)
[2016-12-15] MEDS: LATANOPROST 0.005% 2.5 ML OPH LEFT EYE SCH (21:00)
[2016-12-15] MEDS: TAMSULOSIN (SR) 0.4 MG CAP PO SCH (21:00)
[2016-12-15] MEDS: GABAPENTIN 300 MG CAP PO SCH (21:00)
[2016-12-15] MEDS: CEFAZOLIN 1 GM/50 ML (PMX) 50 ML IVPB SCH (23:32)
[2016-12-16] MEDS: D5W-0.45 NACL + KCL 10 MEQ 1,000 ML IV SCH ×2 (02:30→06:50)
[2016-12-16] MEDS ORDERED: HYDROmorphONE 1 MG/ML SYG IV PRN (02:30)
[2016-12-16] MEDS: CEFAZOLIN 1 GM/50 ML (PMX) 50 ML IVPB SCH ×2 (06:49→15:28)
--- NOTE | 2016-12-16 08:04 | RADRPT ---
PROCEDURE: XR Pelvis. CLINICAL INDICATION: Pelvic pain. TECHNIQUE: Single AP view of the pelvis. COMPARISON: 12/13/2016. FINDINGS: There is a right hip hemiarthroplasty which appears satisfactory with no fracture, dislocation, or l oosening. Right lateral skin cony are noted. There is gas in the soft tissues of the right hip related to the recent surgery. There is a Lemus catheter in the bladder. The left hip is grossly normal. Vascular calcifications are present consistent with atherosclerosis. The sacroiliac joints are grossly unremarkable. IMPRESSION: 1. Satisfactory postoperative appearance of the right hip. RPTAT: QQ .Pelon Ardon MD, MD Date Time Electronically viewed and signed by .Pelon Ardon MD, on 12/16/2016 08:03 .R/
--- NOTE | 2016-12-16 08:05 | RADRPT ---
PROCEDURE: XR Right Hip. CLINICAL INDICATION: Right hip pain. Postop. TECHNIQUE: Single frontal view. COMPARISON: None. FINDINGS: There is a right hip hemiarthroplasty. This appears satisfactory with no fracture, dislocation or l oosening. There is no lytic lesion. Right lateral skin cony are noted. There is a Lemus catheter in the bladder. IMPRESSION: 1. Satisfactory postoperative appearance of the right hip. RPTAT: QQ .Pelon Ardon MD, MD Date Time Electronically viewed and signed by .Pelon Ardon MD, MD on 12/16/2016 08:04 .R/
[2016-12-16 08:26] VITALS: BP 128/58; RESP 16
[2016-12-16] MEDS: PREDNISOLONE ACET 1% 5 ML OPH RIGHT EYE SCH (09:00)
[2016-12-16] MEDS: ALLOPURINOL 300 MG TAB PO SCH (09:13)
[2016-12-16] MEDS: NICOTINE (21 MG/24 HR) PATCH TRANSDERM SCH (09:14)
[2016-12-16] MEDS: THIAMINE 100 MG TAB PO SCH (09:14)
[2016-12-16] MEDS: OXYCODONE/ACETAMINOPHEN (5/325) TAB PO PRN ×3 (09:14→18:11)
[2016-12-16] MEDS: FISH OIL 1,000 MG CAP PO SCH ×2 (09:14→20:09)
[2016-12-16] MEDS: FINASTERIDE 5 MG TAB PO SCH (09:14)
[2016-12-16] MEDS: BISACODYL (EC) 5 MG TAB PO PRN (09:17)
--- NOTE | 2016-12-16 11:33 | PN ---
Date/Time of Note Date/Time of Note DATE: 12/16/16 TIME: 11:18 Assessment/Plan VTE Prophylaxis VTE Prophylaxis Intervention: heparin Lines/Catheters IV Catheter Type (from Nrsg): Peripheral IV Urinary Cath still in place: Yes Reason Cath still needed: other (indicate) Assessment/Plan Assessment/Plan IMPRESSION 1. Right HIP fracture s/p Hemiarthroplasty of the right hip 12/15/16 2. Acute kidney injury r/o CKD 3. CAD s/p VA 4. History of CVA 5. History of BPH 6. Acute Rhabdomyolysis 7. 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 Recent left lower extremity deep vein thrombosis 9. Chronic Gout 10. Constipation PLAN * Continue supportive and routine post op care * Start Heparin for now and resume eliquis once cleared by surgery * Continue PRN pain control/ antiemetics/ antipyretics/ supportive care * ARU eval * Treat constipation Visit time >35mins Subjective 24 Hr Interval Summary Free Text/Dictation Patient seen and examined. spoke with son and dtr at bedside c/o constipation and desire d/c IVF Exam/Review of Systems Vital Signs Vitals Vital Signs Date Time Temp Pulse Resp B/P Pulse Ox O2 Delivery O2 Flow Rate FiO2 12/16/16 08:26 98.7 79 16 128/58 93 12/16/16 02:34 Room Air 12/15/16 22:57 3.0 Intake and Output 12/15/16 12/15/16 12/16/16 15:00 23:00 07:00 Intake Total 450 ml 2320 ml 1150 ml Output Total 2000 ml 1200 ml Balance 450 ml 320 ml -50 ml Exam Constitutional: alert / oriented no acute distress) Head: atraumatic, normocephalic Eyes: EOMI, PERRL Respiratory: clear to auscultation, normal air movement Cardiovascular: regular rate and rhythm Gastrointestinal: non-tender, soft Extremities: other (right hip incision clean and dry Results Result Diagram: 12/15/16192912/15/161929 Results 24 hrs Laboratory Tests Test 12/15/16 19:30 Hemoglobin 12.4 L Hematocrit 36.2 L Sodium Level 134 L Potassium Level 5.1 Chloride Level 110 Carbon Dioxide Level 21 Anion Gap 8 Blood Urea Nitrogen 20 Creatinine 1.17 Glucose Level 151 Calcium Level 8.0 L Medications Medications Current Medications Allopurinol (Zyloprim) 300 mg DAILY PO Last administered on 12/16/16 09:13; Admin Dose 300 MG; Start 12/14/16 at 09:00 Ergocalciferol (Drisdol) 50,000 unit Q7D PO Last administered on 12/14/16 09:51 ; Admin Dose 50,000 UNIT; Start 12/14/16 at 09:00 Finasteride (Proscar) 5 mg DAILY PO Last administered on 12/16/16 09:14; Admin Dose 5 MG; Start 12/14/16 at 09:00 Gabapentin (Neurontin) 300 mg QHS PO Last administered on 12/14/16 20:20; Admin Dose 300 MG; Start 12/14/16 at 21:00 Latanoprost (Xalatan) 1 drop QHS LEFT EYE Last administered on 12/14/16 20:22; Admin Dose 1 DROP; Start 12/14/16 at 21:00 Prednisolone Acetate (Pred-Forte 1%) 1 drop DAILY RIGHT EYE Last administered on 12/15/16 08:42; Admin Dose 1 DROP; Start 12/14/16 at 09:00 Tamsulosin HCl (Flomax) 0.4 mg DAILY@21 PO Last administered on 12/14/16 20:20 ; Admin Dose 0.4 MG; Start 12/14/16 at 21:00 Tramadol HCl (Ultram) 50 mg Q6H PRN PO PAIN; Start 12/14/16 at 01:30 Nicotine (Nicoderm 21 Mg/ 24hr) 1 patch DAILY TRANSDERM Last administered on 09:14; Admin Dose 1 PATCH; Start 12/14/16 at 09:00 Ondansetron HCl (Zofran Inj) 4 mg Q6H PRN IV NAUSEA AND/OR VOMITING Last administered on 12/15/16 19:08; Admin Dose 4 MG; Start 12/14/16 at 01:30 Apixaban (Eliquis) 5 mg DAILY PO ; Start 12/14/16 at 09:00; Status Future Hold Bisacodyl (Dulcolax Supp) 10 mg DAILY PRN NE CONSTIPATION; Start 12/14/16 at 03: 30 Fish Oil (Fish Oil) 2,000 mg BID PO Last administered on 12/16/16 09:14; Admin Dose 2,000 MG; Start 12/14/16 at 21:00 Thiamine HCl (Vitamin B1) 100 mg DAILY PO Last administered on 12/16/16 09:14; Admin Dose 100 MG; Start 12/14/16 at 10:00; Stop 12/19/16 at 09:59 Bisacodyl (Dulcolax) 10 mg DAILY PRN PO CONSTIPATION Last administered on 09:17; Admin Dose 10 MG; Start 12/14/16 at 15:00 Morphine Sulfate (morphine) 4 mg Q4H PRN IV pain Last administered on 12/15/16 08:06; Admin Dose 4 MG; Start 12/15/16 at 03:30 Oxycodone/ Acetaminophen 1 tab 1 tab Q4H PRN PO PAIN LEVEL 1-3 Last administered on 12/16/16 09:14; Admin Dose 1 TAB; Start 12/15/16 at 19:00 Cefazolin Sodium (Ancef 1 Gm/50 ml (Pmx)) 50 ml @ 100 mls/hr Q8H IVPB Last administered on 12/16/16 06:49; Admin Dose 100 MLS/HR; Start 12/15/16 at 23:00; Stop 12/16/16 at 15:29 Hydromorphone HCl 0.4 mg 0.4 mg Q3H PRN IV PAIN Last administered on 12/16/16 02:23; Admin Dose 0.4 MG; Start 12/16/16 at 02:30 Potassium Chloride/Dextrose/ Sod Cl (D5-1/2ns + KCl 10 Meq) 1,000 ml @ 75 mls/ hr [id number] IV Last administered on 12/16/16 06:50; Admin Dose 75 MLS/HR; Start 12/16/16 at 02:30 Procedures Procedures PROCEDURE: XR Right Hip. CLINICAL INDICATION: Right hip pain. Postop. TECHNIQUE: Single frontal view. COMPARISON: None. FINDINGS: There is a right hip hemiarthroplasty. This appears satisfactory with no fracture, dislocation or loosening. There is no lytic lesion. Right lateral skin cony are noted. There is a Lemus catheter in the bladder. IMPRESSION: 1. Satisfactory postoperative appearance of the right hip. RPTAT: QQ .Pelon Ardon MD, Date Time Electronically viewed and signed by .Pelon Ardon MD, on 12/16/2016 08:04 .R/ CC: JAIME VAZQUEZ MD, BOLATITO M. Dec 16, 2016 11:29
[2016-12-16] MEDS ORDERED: MAGNESIUM CITRATE 300 ML BTL PO ONE (13:30)
--- NOTE | 2016-12-16 17:38 | CONS ---
Date/Time of Note Date/Time of Note DATE: 12/16/16 TIME: 17:37 Assessment/Plan Assessment/Plan Chief Complaint/Hosp Course Assessment: Pre-operative cardiac evaluation - now status post surgery Status post mechanical fall Acute rip hip fracture - status post hemiarthroplasty 12/15/2016 Recent left lower extremity deep vein thrombosis Abnormal EKG - RBBB and LAFB, but no acute ischemic changes History of myocardial infarction - details unknown, denies prior coronary stenting or angioplasty History of stroke Chronic kidney disease Benign prostate hyperplasia Recommendations: -resume Eliquis when able to post-operatively Problems: Consultation Date/Type/Reason Admit Date/Time Dec 13, 2016 at 21:47 Initial Consult Date Type of Consultation: Cardiology 24 HR Interval Summary Free Text/Dictation Status post right hip hemiarthroplasty yesterday. Doing well post-operatively. Detailed Summary Additional Comments 14 point review of systems without changes. Exam/Review of Systems Vital Signs Vitals Vital Signs Date Time Temp Pulse Resp B/P Pulse Ox O2 Delivery O2 Flow Rate FiO2 12/16/16 08:26 98.7 79 16 128/58 93 12/16/16 08:00 Nasal Cannula 3.0 Intake and Output 12/15/16 12/15/16 12/16/16 15:00 23:00 07:00 Intake Total 450 ml 2320 ml 1150 ml Output Total 2000 ml 1200 ml Balance 450 ml 320 ml -50 ml Exam Constitutional: alert, well developed Psych: nl mood/affect, no complaints Head: atraumatic, normocephalic Eyes: nl conjunctiva, nl lids ENMT: nl external ears & nose, nl nasal mucosa & septum Neck: non-tender, supple, No jvd Respiratory: clear to auscultation, normal air movement Cardiovascular: regular rate and rhythm, No murmurs/extra sounds Gastrointestinal: non-tender, soft Extremities: No clubbing, No cyanosis, No edema Results Result Diagram: 12/15/16192912/15/161929 Results 24 hrs Laboratory Tests Test 12/15/16 19:30 Hemoglobin 12.4 L Hematocrit 36.2 L Sodium Level 134 L Potassium Level 5.1 Chloride Level 110 Carbon Dioxide Level 21 Anion Gap 8 Blood Urea Nitrogen 20 Creatinine 1.17 Glucose Level 151 Calcium Level 8.0 L Medications Medications Current Medications Allopurinol (Zyloprim) 300 mg DAILY PO Last administered on 12/16/16 09:13; Admin Dose 300 MG; Start 12/14/16 at 09:00 Ergocalciferol (Drisdol) 50,000 unit Q7D PO Last administered on 12/14/16 09:51 ; Admin Dose 50,000 UNIT; Start 12/14/16 at 09:00 Finasteride (Proscar) 5 mg DAILY PO Last administered on 12/16/16 09:14; Admin Dose 5 MG; Start 12/14/16 at 09:00 Gabapentin (Neurontin) 300 mg QHS PO Last administered on 12/14/16 20:20; Admin Dose 300 MG; Start 12/14/16 at 21:00 Latanoprost (Xalatan) 1 drop QHS LEFT EYE Last administered on 12/14/16 20:22; Admin Dose 1 DROP; Start 12/14/16 at 21:00 Prednisolone Acetate (Pred-Forte 1%) 1 drop DAILY RIGHT EYE Last administered on 12/15/16 08:42; Admin Dose 1 DROP; Start 12/14/16 at 09:00 Tamsulosin HCl (Flomax) 0.4 mg DAILY@21 PO Last administered on 12/14/16 20:20 ; Admin Dose 0.4 MG; Start 12/14/16 at 21:00 Tramadol HCl (Ultram) 50 mg Q6H PRN PO PAIN; Start 12/14/16 at 01:30 Nicotine (Nicoderm 21 Mg/ 24hr) 1 patch DAILY TRANSDERM Last administered on 09:14; Admin Dose 1 PATCH; Start 12/14/16 at 09:00 Ondansetron HCl (Zofran Inj) 4 mg Q6H PRN IV NAUSEA AND/OR VOMITING Last administered on 12/15/16 19:08; Admin Dose 4 MG; Start 12/14/16 at 01:30 Apixaban (Eliquis) 5 mg DAILY PO ; Start 12/14/16 at 09:00; Status Future Hold Bisacodyl (Dulcolax Supp) 10 mg DAILY PRN [place] CONSTIPATION; Start 12/14/16 at 03: 30 Fish Oil (Fish Oil) 2,000 mg BID PO Last administered on 12/16/16 09:14; Admin Dose 2,000 MG; Start 12/14/16 at 21:00 Thiamine HCl (Vitamin B1) 100 mg DAILY PO Last administered on 12/16/16 09:14; Admin Dose 100 MG; Start 12/14/16 at 10:00; Stop 12/19/16 at 09:59 Bisacodyl (Dulcolax) 10 mg DAILY PRN PO CONSTIPATION Last administered on 09:17; Admin Dose 10 MG; Start 12/14/16 at 15:00 Morphine Sulfate (morphine) 4 mg Q4H PRN IV pain Last administered on 12/15/16 08:06; Admin Dose 4 MG; Start 12/15/16 at 03:30 Oxycodone/ Acetaminophen (Percocet (5/ 325)) 1 tab Q4H PRN PO PAIN LEVEL 1-3 Last administered on 12/16/16 13:42; Admin Dose 1 TAB; Start 12/15/16 at 19:00 Hydromorphone HCl (Dilaudid) 0.4 mg Q3H PRN IV PAIN Last administered on 02:23; Admin Dose 0.4 MG; Start 12/16/16 at 02:30 Heparin Sodium (Porcine) (Heparin (5000 Units/0.5 ml)) 5,000 unit BID SC ; Start 12/16/16 at 21:00 Docusate Sodium (Colace) 100 mg BID PO ; Start 12/16/16 at 21:00 JHONY WIGGINS MD Dec 16, 2016 17:38
[2016-12-16 19:41] VITALS: BP 129/71; RESP 20
[2016-12-16] MEDS: TAMSULOSIN (SR) 0.4 MG CAP PO SCH (20:06)
[2016-12-16] MEDS: GABAPENTIN 300 MG CAP PO SCH (20:07)
[2016-12-16] MEDS: DOCUSATE SODIUM 100 MG CAP PO SCH (20:09)
[2016-12-16] MEDS: HEPARIN 5,000 UNIT/0.5 ML SYG SC SCH (20:09)
[2016-12-16] MEDS: LATANOPROST 0.005% 2.5 ML OPH LEFT EYE SCH (20:10)
[2016-12-17] MEDS: OXYCODONE/ACETAMINOPHEN (5/325) TAB PO PRN ×4 (01:12→20:27)
[2016-12-17 05:40] LABS: ADD SCAN DIFF NO
[2016-12-17 05:49] LABS: BASOPHILS % 0.1 % (0.0-2.0); EOSINOPHILS % 0.1 % (0.0-7.0); HEMOGLOBIN 10.5 g/dl (14.0-18.0); LYMPHOCYTES # 2.5 10^3/ul (0.8-2.9); MEAN CORPUSCULAR HEMOGLOBIN 34.2 pg (29.0-33.0); MEAN CORPUSCULAR HGB CONC 33.9 g/dl (32.0-37.0); MEAN PLATELET VOLUME 12.2 fl (7.4-10.4); MONOCYTE # 1.1 10^3/ul (0.3-0.9); MONOCYTES % 8.3 % (0.0-11.0); NEUTROPHIL # 9.9 10^3/ul (1.6-7.5); NEUTROPHILS % 73.1 % (39.0-77.0); PLATELET COUNT 146 10^3/UL (140-415); RED BLOOD COUNT 3.07 10^6/ul (4.70-6.10); RED CELL DISTRIBUTION WIDTH 15.1 % (11.5-14.5); WHITE BLOOD COUNT 13.6 10^3/ul (4.8-10.8)
[2016-12-17 06:08] LABS: POTASSIUM 4.6 mmol/L (3.5-5.1)
[2016-12-17 06:10] LABS: CREATININE 1.26 mg/dl (0.61-1.24)
[2016-12-17 06:11] LABS: CALCIUM 8.5 mg/dl (8.4-10.2); MAGNESIUM 2.3 mg/dl (1.7-2.5)
[2016-12-17 07:54] VITALS: BP 154/74; RESP 18
[2016-12-17] MEDS: FISH OIL 1,000 MG CAP PO SCH ×2 (08:49→20:25)
[2016-12-17] MEDS: DOCUSATE SODIUM 100 MG CAP PO SCH ×2 (08:49→20:24)
[2016-12-17] MEDS: FINASTERIDE 5 MG TAB PO SCH (08:49)
[2016-12-17] MEDS: THIAMINE 100 MG TAB PO SCH (08:49)
[2016-12-17] MEDS: ALLOPURINOL 300 MG TAB PO SCH (08:49)
[2016-12-17] MEDS: NICOTINE (21 MG/24 HR) PATCH TRANSDERM SCH (08:50)
[2016-12-17] MEDS: HEPARIN 5,000 UNIT/0.5 ML SYG SC SCH (08:53)
[2016-12-17] MEDS: PREDNISOLONE ACET 1% 5 ML OPH RIGHT EYE SCH (09:00)
--- NOTE | 2016-12-17 12:07 | PN ---
Date/Time of Note Date/Time of Note DATE: 12/17/16 TIME: 12:06 Assessment/Plan VTE Prophylaxis VTE Prophylaxis Intervention: other (eliquis) Lines/Catheters IV Catheter Type (from Nrsg): Peripheral IV Urinary Cath still in place: Yes Reason Cath still needed: other (indicate) Assessment/Plan Assessment/Plan IMPRESSION 1. Right HIP fracture s/p Hemiarthroplasty of the right hip 12/15/16 2. Acute kidney injury r/o CKD 3. CAD s/p NE 4. History of CVA 5. History of BPH 6. Acute Rhabdomyolysis 7. 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 Recent left lower extremity deep vein thrombosis 9. Chronic Gout 10. Constipation: improved PLAN * Continue supportive and routine post op care * Resume eliquis once cleared by surgery * Continue PRN pain control/ antiemetics/ antipyretics/ supportive care * Has been accepted by [facility] pending insurance approval Visit time >35mins Subjective 24 Hr Interval Summary Free Text/Dictation feels well Had large BM yesterday no new complaints Exam/Review of Systems Vital Signs Vitals Vital Signs Date Time Temp Pulse Resp B/P Pulse Ox O2 Delivery O2 Flow Rate FiO2 12/17/16 07:54 98.4 79 18 154/74 93 12/16/16 21:51 21 12/16/16 17:53 3.0 12/16/16 08:00 Nasal Cannula Intake and Output 12/16/16 12/16/16 12/17/16 15:00 23:00 07:00 Intake Total 100 ml 1550 ml 450 ml Output Total 1400 ml 800 ml Balance 100 ml 150 ml -350 ml Exam Constitutional: alert / oriented no acute distress) Head: atraumatic, normocephalic Eyes: EOMI, PERRL Respiratory: clear to auscultation, normal air movement Cardiovascular: regular rate and rhythm Gastrointestinal: non-tender, soft Extremities: other (right hip incision clean and dry Results Result Diagram: 12/17/1642912/17/16 043 Results 24 hrs Laboratory Tests Test 12/17/16 04:30 White Blood Count 13.6 #H Red Blood Count 3.07 #L Hemoglobin 10.5 L Hematocrit 31.0 L Mean Corpuscular Volume 101.0 Mean Corpuscular Hemoglobin 34.2 H Mean Corpuscular Hemoglobin Concent 33.9 Red Cell Distribution Width 15.1 H Platelet Count 146 Mean Platelet Volume 12.2 H Neutrophils % 73.1 Lymphocytes % 18.0 Monocytes % 8.3 Eosinophils % 0.1 Basophils % 0.1 Nucleated Red Blood Cells % 0.0 Neutrophils # 9.9 H Lymphocytes # 2.5 Monocytes # 1.1 H Eosinophils # 0.0 Basophils # 0.0 Nucleated Red Blood Cells # 0.0 Sodium Level 140 Potassium Level 4.6 Chloride Level 106 Carbon Dioxide Level 26 Anion Gap 13 Blood Urea Nitrogen 24 H Creatinine 1.26 H Glucose Level 104 # Calcium Level 8.5 Magnesium Level 2.3 Creatine Kinase 663 H Medications Medications Current Medications Allopurinol (Zyloprim) 300 mg DAILY PO Last administered on 12/17/16 08:49; Admin Dose 300 MG; Start 12/14/16 at 09:00 Ergocalciferol (Drisdol) 50,000 unit Q7D PO Last administered on 12/14/16 09:51 ; Admin Dose 50,000 UNIT; Start 12/14/16 at 09:00 Finasteride (Proscar) 5 mg DAILY PO Last administered on 12/17/16 08:49; Admin Dose 5 MG; Start 12/14/16 at 09:00 Gabapentin (Neurontin) 300 mg QHS PO Last administered on 12/16/16 20:07; Admin Dose 300 MG; Start 12/14/16 at 21:00 Latanoprost (Xalatan) 1 drop QHS LEFT EYE Last administered on 12/16/16 20:10; Admin Dose 1 DROP; Start 12/14/16 at 21:00 Prednisolone Acetate (Pred-Forte 1%) 1 drop DAILY RIGHT EYE Last administered on 12/15/16 08:42; Admin Dose 1 DROP; Start 12/14/16 at 09:00 Tamsulosin HCl (Flomax) 0.4 mg DAILY@21 PO Last administered on 12/16/16 20:06 ; Admin Dose 0.4 MG; Start 12/14/16 at 21:00 Tramadol HCl (Ultram) 50 mg Q6H PRN PO PAIN; Start 12/14/16 at 01:30 Nicotine (Nicoderm 21 Mg/ 24hr) 1 patch DAILY TRANSDERM Last administered on 08:50; Admin Dose 1 PATCH; Start 12/14/16 at 09:00 Ondansetron HCl (Zofran Inj) 4 mg Q6H PRN IV NAUSEA AND/OR VOMITING Last administered on 12/15/16 19:08; Admin Dose 4 MG; Start 12/14/16 at 01:30 Apixaban (Eliquis) 5 mg DAILY PO ; Start 12/14/16 at 09:00; Status Future Hold Bisacodyl (Dulcolax Supp) 10 mg DAILY PRN [place] CONSTIPATION; Start 12/14/16 at 03: 30 Fish Oil (Fish Oil) 2,000 mg BID PO Last administered on 12/17/16 08:49; Admin Dose 2,000 MG; Start 12/14/16 at 21:00 Thiamine HCl (Vitamin B1) 100 mg DAILY PO Last administered on 12/17/16 08:49; Admin Dose 100 MG; Start 12/14/16 at 10:00; Stop 12/19/16 at 09:59 Bisacodyl (Dulcolax) 10 mg DAILY PRN PO CONSTIPATION Last administered on 09:17; Admin Dose 10 MG; Start 12/14/16 at 15:00 Morphine Sulfate (morphine) 4 mg Q4H PRN IV pain Last administered on 12/15/16 08:06; Admin Dose 4 MG; Start 12/15/16 at 03:30 Oxycodone/ Acetaminophen (Percocet (5/ 325)) 1 tab Q4H PRN PO PAIN LEVEL 1-3 Last administered on 12/17/16 08:49; Admin Dose 1 TAB; Start 12/15/16 at 19:00 Hydromorphone HCl (Dilaudid) 0.4 mg Q3H PRN IV PAIN Last administered on 02:23; Admin Dose 0.4 MG; Start 12/16/16 at 02:30 Heparin Sodium (Porcine) (Heparin (5000 Units/0.5 ml)) 5,000 unit BID SC Last administered on 12/17/16 08:53; Admin Dose 5,000 UNIT; Start 12/16/16 at 21:00 Docusate Sodium (Colace) 100 mg BID PO Last administered on 12/17/16 08:49; Admin Dose 100 MG; Start 12/16/16 at 21:00 ROBE HALL Apr 4, 2017 12:07
[2016-12-17] MEDS ORDERED: SOD CHLORIDE 0.9% 1,000 ML IV SCH (12:30)
--- NOTE | 2016-12-17 14:08 | RADRPT ---
Vent Rate: 81 bpm RR Interval: 0 msec [place] Interval: 134 msec QRS Duration: 150 msec QT Interval: 428 msec QTC Interval: 497 msec P-R-T [place]: 82 - -55 - 94 degrees Sinus rhythm with premature supraventricular complexes Right bundle branch block Left anterior fascicular block Bifascicular block Septal infarct , age undetermined Abnormal ECG Electronically Signed By: Nelson Naylor [id number]
--- NOTE | 2016-12-17 14:40 | CONS ---
Date/Time of Note Date/Time of Note DATE: 12/17/16 TIME: 14:39 Assessment/Plan Assessment/Plan Chief Complaint/Hosp Course Assessment: Pre-operative cardiac evaluation - now status post surgery Status post mechanical fall Acute rip hip fracture - status post hemiarthroplasty 12/15/2016 Recent left lower extremity deep vein thrombosis Abnormal EKG - RBBB and LAFB, but no acute ischemic changes History of myocardial infarction - details unknown, denies prior coronary stenting or angioplasty History of stroke Chronic kidney disease Benign prostate hyperplasia Recommendations: -resume Eliquis when able to post-operatively Problems: Consultation Date/Type/Reason Admit Date/Time Dec 13, 2016 at 21:47 Type of Consultation: Cardiology 24 HR Interval Summary Free Text/Dictation No acute events. Detailed Summary Additional Comments 14 point review of systems without changes. Exam/Review of Systems Vital Signs Vitals Vital Signs Date Time Temp Pulse Resp B/P Pulse Ox O2 Delivery O2 Flow Rate FiO2 12/17/16 07:54 98.4 79 18 154/74 93 12/16/16 21:51 21 12/16/16 17:53 3.0 12/16/16 08:00 Nasal Cannula Intake and Output 12/16/16 12/16/16 12/17/16 15:00 23:00 07:00 Intake Total 100 ml 1550 ml 450 ml Output Total 1400 ml 800 ml Balance 100 ml 150 ml -350 ml Exam Constitutional: alert, well developed Psych: nl mood/affect, no complaints Head: atraumatic, normocephalic Eyes: nl conjunctiva, nl lids ENMT: nl external ears & nose, nl nasal mucosa & septum Neck: non-tender, supple, No jvd Respiratory: clear to auscultation, normal air movement Cardiovascular: regular rate and rhythm, No murmurs/extra sounds Gastrointestinal: non-tender, soft Extremities: No clubbing, No cyanosis, No edema Results Result Diagram: 12/17/16 0430 12/17/16 0430 Results 24 hrs Laboratory Tests Test 12/17/16 04:30 White Blood Count 13.6 #H Red Blood Count 3.07 #L Hemoglobin 10.5 L Hematocrit 31.0 L Mean Corpuscular Volume 101.0 Mean Corpuscular Hemoglobin 34.2 H Mean Corpuscular Hemoglobin Concent 33.9 Red Cell Distribution Width 15.1 H Platelet Count 146 Mean Platelet Volume 12.2 H Neutrophils % 73.1 Lymphocytes % 18.0 Monocytes % 8.3 Eosinophils % 0.1 Basophils % 0.1 Nucleated Red Blood Cells % 0.0 Neutrophils # 9.9 H Lymphocytes # 2.5 Monocytes # 1.1 H Eosinophils # 0.0 Basophils # 0.0 Nucleated Red Blood Cells # 0.0 Sodium Level 140 Potassium Level 4.6 Chloride Level 106 Carbon Dioxide Level 26 Anion Gap 13 Blood Urea Nitrogen 24 H Creatinine 1.26 H Glucose Level 104 # Calcium Level 8.5 Magnesium Level 2.3 Creatine Kinase 663 H Medications Medications Current Medications Allopurinol (Zyloprim) 300 mg DAILY PO Last administered on 12/17/16 08:49; Admin Dose 300 MG; Start 12/14/16 at 09:00 Ergocalciferol (Drisdol) 50,000 unit Q7D PO Last administered on 12/14/16 09:51 ; Admin Dose 50,000 UNIT; Start 12/14/16 at 09:00 Finasteride (Proscar) 5 mg DAILY PO Last administered on 12/17/16 08:49; Admin Dose 5 MG; Start 12/14/16 at 09:00 Gabapentin (Neurontin) 300 mg QHS PO Last administered on 12/16/16 20:07; Admin Dose 300 MG; Start 12/14/16 at 21:00 Latanoprost (Xalatan) 1 drop QHS LEFT EYE Last administered on 12/16/16 20:10; Admin Dose 1 DROP; Start 12/14/16 at 21:00 Prednisolone Acetate (Pred-Forte 1%) 1 drop DAILY RIGHT EYE Last administered on 12/15/16 08:42; Admin Dose 1 DROP; Start 12/14/16 at 09:00 Tamsulosin HCl (Flomax) 0.4 mg DAILY@21 PO Last administered on 12/16/16 20:06 ; Admin Dose 0.4 MG; Start 12/14/16 at 21:00 Tramadol HCl (Ultram) 50 mg Q6H PRN PO PAIN; Start 12/14/16 at 01:30 Nicotine (Nicoderm 21 Mg/ 24hr) 1 patch DAILY TRANSDERM Last administered on 08:50; Admin Dose 1 PATCH; Start 12/14/16 at 09:00 Ondansetron HCl (Zofran Inj) 4 mg Q6H PRN IV NAUSEA AND/OR VOMITING Last administered on 12/15/16 19:08; Admin Dose 4 MG; Start 12/14/16 at 01:30 Apixaban (Eliquis) 5 mg DAILY PO ; Start 12/14/16 at 09:00; Status Future hold Bisacodyl (Dulcolax Supp) 10 mg DAILY PRN [place] CONSTIPATION; Start 12/14/16 at 03: 30 Fish Oil (Fish Oil) 2,000 mg BID PO Last administered on 12/17/16 08:49; Admin Dose 2,000 MG; Start 12/14/16 at 21:00 Thiamine HCl (Vitamin B1) 100 mg DAILY PO Last administered on 12/17/16 08:49; Admin Dose 100 MG; Start 12/14/16 at 10:00; Stop 12/19/16 at 09:59 Bisacodyl (Dulcolax) 10 mg DAILY PRN PO CONSTIPATION Last administered on 09:17; Admin Dose 10 MG; Start 12/14/16 at 15:00 Morphine Sulfate (morphine) 4 mg Q4H PRN IV pain Last administered on 12/15/16 08:06; Admin Dose 4 MG; Start 12/15/16 at 03:30 Oxycodone/ Acetaminophen (Percocet (5/ 325)) 1 tab Q4H PRN PO PAIN LEVEL 1-3 Last administered on 12/17/16 14:03; Admin Dose 1 TAB; Start 12/15/16 at 19:00 Hydromorphone HCl (Dilaudid) 0.4 mg Q3H PRN IV PAIN Last administered on 02:23; Admin Dose 0.4 MG; Start 12/16/16 at 02:30 Docusate Sodium 100 mg 100 mg BID PO Last administered on 12/17/16 08:49; Admin Dose 100 MG; Start 12/16/16 at 21:00 Sodium Chloride (NS) 1,000 ml @ 80 mls/hr [id number] IV Last administered on 14:02; Admin Dose 80 MLS/HR; Start 12/17/16 at 12:30; Stop 12/18/16 at 00:59 JHONY WIGGINS MD Dec 17, 2016 14:39
--- NOTE | 2016-12-17 19:04 | PN ---
DATE: 12/17/2016 First postop day. Stable vital signs. H and H today is 10.5/31.0. No neurovascular compromise involving the right lower extremity. Postop x-rays of the right hip show satisfactory position of the femoral component. He had been up with physical therapy. Dictated By: RENE REESE/CHAYO Conf#: [id number] DID#: [id number]
[2016-12-17] MEDS: GABAPENTIN 300 MG CAP PO SCH (20:24)
[2016-12-17] MEDS: TAMSULOSIN (SR) 0.4 MG CAP PO SCH (20:24)
[2016-12-17] MEDS: LATANOPROST 0.005% 2.5 ML OPH LEFT EYE SCH (20:28)
[2016-12-18] MEDS: OXYCODONE/ACETAMINOPHEN (5/325) TAB PO PRN ×2 (05:07→18:32)
[2016-12-18 05:11] LABS: ADD SCAN DIFF NO
[2016-12-18 05:25] LABS: BASOPHIL # 0.1 10^3/ul (0.0-0.1); BASOPHILS % 0.5 % (0.0-2.0); EOSINOPHILS # 0.1 10^3/ul (0.0-0.5); EOSINOPHILS % 1.1 % (0.0-7.0); HEMATOCRIT 31.9 % (42.0-52.0); HEMOGLOBIN 10.4 g/dl (14.0-18.0); LYMPHOCYTES # 2.5 10^3/ul (0.8-2.9); MEAN CORPUSCULAR HEMOGLOBIN 33.4 pg (29.0-33.0); MEAN CORPUSCULAR HGB CONC 32.6 g/dl (32.0-37.0); MEAN CORPUSCULAR VOLUME 102.6 fl (82.0-101.0); MEAN PLATELET VOLUME 11.3 fl (7.4-10.4); MONOCYTES % 9.5 % (0.0-11.0); NEUTROPHILS % 65.2 % (39.0-77.0); PLATELET COUNT 171 10^3/UL (140-415); RED BLOOD COUNT 3.11 10^6/ul (4.70-6.10); RED CELL DISTRIBUTION WIDTH 15.1 % (11.5-14.5); WHITE BLOOD COUNT 10.7 10^3/ul (4.8-10.8)
[2016-12-18 05:33] LABS: POTASSIUM 4.6 mmol/L (3.5-5.1)
[2016-12-18 05:35] LABS: CREATININE 1.21 mg/dl (0.61-1.24)
[2016-12-18 05:36] LABS: CALCIUM 8.4 mg/dl (8.4-10.2)
[2016-12-18 07:00] VITALS: BP 119/59; RESP 20
[2016-12-18] MEDS: PREDNISOLONE ACET 1% 5 ML OPH RIGHT EYE SCH (08:50)
[2016-12-18] MEDS: NICOTINE (21 MG/24 HR) PATCH TRANSDERM SCH (08:50)
[2016-12-18] MEDS: FINASTERIDE 5 MG TAB PO SCH (08:51)
[2016-12-18] MEDS: APIXABAN 5 MG TABLET PO SCH (08:51)
[2016-12-18] MEDS: ALLOPURINOL 300 MG TAB PO SCH (08:51)
[2016-12-18] MEDS: FISH OIL 1,000 MG CAP PO SCH ×2 (08:51→20:52)
[2016-12-18] MEDS: THIAMINE 100 MG TAB PO SCH (08:51)
[2016-12-18] MEDS: DOCUSATE SODIUM 100 MG CAP PO SCH ×2 (08:51→20:52)
--- NOTE | 2016-12-18 11:16 | PN ---
Date/Time of Note Date/Time of Note DATE: 12/18/16 TIME: 11:15 Assessment/Plan VTE Prophylaxis VTE Prophylaxis Intervention: other (eliquis) Lines/Catheters IV Catheter Type (from Nrs): Peripheral IV Urinary Cath still in place: No Assessment/Plan Assessment/Plan IMPRESSION 1. Right HIP fracture s/p Hemiarthroplasty of the right hip 12/15/16 2. Acute kidney injury r/o CKD 3. CAD s/p NE 4. History of CVA 5. History of BPH 6. Acute Rhabdomyolysis 7. 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 Recent left lower extremity deep vein thrombosis 9. Chronic Gout 10. Constipation: improved PLAN * Continue supportive and routine post op care * Continue PRN pain control/ antiemetics/ antipyretics/ supportive care * Has been accepted by [facility] pending insurance approval Subjective 24 Hr Interval Summary Free Text/Dictation Patient seen and examined. improves daily Exam/Review of Systems Vital Signs Vitals Vital Signs Date Time Temp Pulse Resp B/P Pulse Ox O2 Delivery O2 Flow Rate FiO2 12/18/16 07:00 99.0 78 20 119/59 96 12/16/16 21:51 21 12/16/16 17:53 3.0 12/16/16 08:00 Nasal Cannula Intake and Output 12/17/16 12/17/16 12/18/16 15:00 23:00 07:00 Intake Total 1300 ml 1250 ml Balance 1300 ml 1250 ml Exam Constitutional: alert / oriented no acute distress) Head: atraumatic, normocephalic Eyes: EOMI, PERRL Respiratory: clear to auscultation, normal air movement Cardiovascular: regular rate and rhythm Gastrointestinal: non-tender, soft Extremities: other (right hip incision clean and dry Results Result Diagram: 12/18/16 0425 12/18/16 0425 Results 24 hrs Laboratory Tests Test 12/18/16 04:25 White Blood Count 10.7 # Red Blood Count 3.11 L Hemoglobin 10.4 L Hematocrit 31.9 L Mean Corpuscular Volume 102.6 H Mean Corpuscular Hemoglobin 33.4 H Mean Corpuscular Hemoglobin Concent 32.6 Red Cell Distribution Width 15.1 H Platelet Count 171 Mean Platelet Volume 11.3 H Neutrophils % 65.2 Lymphocytes % 23.0 Monocytes % 9.5 Eosinophils % 1.1 Basophils % 0.5 Nucleated Red Blood Cells % 0.0 Neutrophils # 7.0 Lymphocytes # 2.5 Monocytes # 1.0 H Eosinophils # 0.1 Basophils # 0.1 Nucleated Red Blood Cells # 0.0 Sodium Level 135 Potassium Level 4.6 Chloride Level 106 Carbon Dioxide Level 25 Anion Gap 9 Blood Urea Nitrogen 24 H Creatinine 1.21 Glucose Level 99 Calcium Level 8.4 Medications Medications Current Medications Allopurinol (Zyloprim) 300 mg DAILY PO Last administered on 12/18/16 08:51; Admin Dose 300 MG; Start 12/14/16 at 09:00 Ergocalciferol (Drisdol) 50,000 unit Q7D PO Last administered on 12/14/16 09:51 ; Admin Dose 50,000 UNIT; Start 12/14/16 at 09:00 Finasteride (Proscar) 5 mg DAILY PO Last administered on 12/18/16 08:51; Admin Dose 5 MG; Start 12/14/16 at 09:00 Gabapentin (Neurontin) 300 mg QHS PO Last administered on 12/17/16 20:24; Admin Dose 300 MG; Start 12/14/16 at 21:00 Latanoprost (Xalatan) 1 drop QHS LEFT EYE Last administered on 12/17/16 20:28; Admin Dose 1 DROP; Start 12/14/16 at 21:00 Prednisolone Acetate (Pred-Forte 1%) 1 drop DAILY RIGHT EYE Last administered on 12/18/16 08:50; Admin Dose 1 DROP; Start 12/14/16 at 09:00 Tamsulosin HCl (Flomax) 0.4 mg DAILY@21 PO Last administered on 12/17/16 20:24 ; Admin Dose 0.4 MG; Start 12/14/16 at 21:00 Tramadol HCl (Ultram) 50 mg Q6H PRN PO PAIN; Start 12/14/16 at 01:30 Nicotine (Nicoderm 21 Mg/ 24hr) 1 patch DAILY TRANSDERM Last administered on 08:50; Admin Dose 1 PATCH; Start 12/14/16 at 09:00 Ondansetron HCl (Zofran Inj) 4 mg Q6H PRN IV NAUSEA AND/OR VOMITING Last administered on 12/15/16 19:08; Admin Dose 4 MG; Start 12/14/16 at 01:30 Apixaban (Eliquis) 5 mg DAILY PO Last administered on 12/18/16 08:51; Admin Dose 5 MG; Start 12/14/16 at 09:00; Status Future hold Bisacodyl (Dulcolax Supp) 10 mg DAILY PRN [place] CONSTIPATION; Start 12/14/16 at 03: 30 Fish Oil (Fish Oil) 2,000 mg BID PO Last administered on 12/18/16 08:51; Admin Dose 2,000 MG; Start 12/14/16 at 21:00 Thiamine HCl (Vitamin B1) 100 mg DAILY PO Last administered on 12/18/16 08:51; Admin Dose 100 MG; Start 12/14/16 at 10:00; Stop 12/19/16 at 09:59 Bisacodyl (Dulcolax) 10 mg DAILY PRN PO CONSTIPATION Last administered on 09:17; Admin Dose 10 MG; Start 12/14/16 at 15:00 Morphine Sulfate (morphine) 4 mg Q4H PRN IV pain Last administered on 12/15/16 08:06; Admin Dose 4 MG; Start 12/15/16 at 03:30 Oxycodone/ Acetaminophen (Percocet (5/ 325)) 1 tab Q4H PRN PO PAIN LEVEL 1-3 Last administered on 12/18/16 05:07; Admin Dose 1 TAB; Start 12/15/16 at 19:00 Hydromorphone HCl (Dilaudid) 0.4 mg Q3H PRN IV PAIN Last administered on 02:23; Admin Dose 0.4 MG; Start 12/16/16 at 02:30 Docusate Sodium (Colace) 100 mg BID PO Last administered on 12/18/16 08:51; Admin Dose 100 MG; Start 12/16/16 at 21:00 ROBE HALL Dec 18, 2016 11:16
[2016-12-18 19:49] VITALS: BP 133/63; RESP 20
[2016-12-18] MEDS ORDERED: TEMAZEPAM 7.5 MG CAP PO PRN (20:30)
[2016-12-18] MEDS: TAMSULOSIN (SR) 0.4 MG CAP PO SCH (20:52)
[2016-12-18] MEDS: GABAPENTIN 300 MG CAP PO SCH (20:52)
[2016-12-18] MEDS: LATANOPROST 0.005% 2.5 ML OPH LEFT EYE SCH ×2 (20:54→21:00)
[2016-12-19] MEDS: OXYCODONE/ACETAMINOPHEN (5/325) TAB PO PRN ×3 (02:11→19:42)
[2016-12-19 05:42] LABS: ADD SCAN DIFF NO
[2016-12-19 05:45] LABS: BASOPHIL # 0.1 10^3/ul (0.0-0.1); BASOPHILS % 0.5 % (0.0-2.0); EOSINOPHILS # 0.2 10^3/ul (0.0-0.5); EOSINOPHILS % 2.5 % (0.0-7.0); HEMATOCRIT 31.7 % (42.0-52.0); HEMOGLOBIN 10.7 g/dl (14.0-18.0); LYMPHOCYTES # 2.2 10^3/ul (0.8-2.9); LYMPHOCYTES % 23.1 % (15.0-51.0); MEAN CORPUSCULAR HEMOGLOBIN 34.3 pg (29.0-33.0); MEAN CORPUSCULAR HGB CONC 33.8 g/dl (32.0-37.0); MEAN CORPUSCULAR VOLUME 101.6 fl (82.0-101.0); MEAN PLATELET VOLUME 11.5 fl (7.4-10.4); MONOCYTE # 0.9 10^3/ul (0.3-0.9); MONOCYTES % 9.3 % (0.0-11.0); NEUTROPHILS % 63.6 % (39.0-77.0); PLATELET COUNT 209 10^3/UL (140-415); RED BLOOD COUNT 3.12 10^6/ul (4.70-6.10); RED CELL DISTRIBUTION WIDTH 14.7 % (11.5-14.5); WHITE BLOOD COUNT 9.5 10^3/ul (4.8-10.8)
[2016-12-19 05:48] LABS: POTASSIUM 4.3 mmol/L (3.5-5.1)
[2016-12-19 05:51] LABS: CALCIUM 8.7 mg/dl (8.4-10.2); CREATININE 1.25 mg/dl (0.61-1.24)
[2016-12-19 07:51] VITALS: BP 126/67; RESP 18
[2016-12-19] MEDS: APIXABAN 5 MG TABLET PO SCH (08:46)
[2016-12-19] MEDS: DOCUSATE SODIUM 100 MG CAP PO SCH ×2 (08:46→20:58)
[2016-12-19] MEDS: FISH OIL 1,000 MG CAP PO SCH ×2 (08:46→20:58)
[2016-12-19] MEDS: THIAMINE 100 MG TAB PO SCH (08:46)
[2016-12-19] MEDS: ALLOPURINOL 300 MG TAB PO SCH (08:46)
[2016-12-19] MEDS: FINASTERIDE 5 MG TAB PO SCH (08:46)
[2016-12-19] MEDS: PREDNISOLONE ACET 1% 5 ML OPH RIGHT EYE SCH (08:47)
[2016-12-19] MEDS: NICOTINE (21 MG/24 HR) PATCH TRANSDERM SCH (08:47)
[2016-12-19 15:16] LABS: ADD UMIC NO; URINE BILIRUBIN (Dip) NEGATIVE (NEGATIVE); URINE BLOOD (Dip) NEGATIVE (NEGATIVE); URINE COLOR LT. YELLOW (YELLOW); URINE GLUCOSE (Dip) NEGATIVE (NEGATIVE); URINE KETONES (Dip) NEGATIVE (NEGATIVE); URINE LEUKOCYTE ESTERASE (Dip) NEGATIVE (NEGATIVE); URINE NITRITE (Dip) NEGATIVE (NEGATIVE); URINE TOTAL PROTEIN (Dip) NEGATIVE (NEGATIVE); URINE UROBILINOGEN (Dip) 1.0 E.U./dL (0.1-1.0)
[2016-12-19 19:54] VITALS: BP 125/59; RESP 19
--- NOTE | 2016-12-19 19:54 | CONS ---
Date/Time of Note Date/Time of Note DATE: 12/19/16 TIME: 19:53 Assessment/Plan Assessment/Plan Chief Complaint/Hosp Course Assessment: Pre-operative cardiac evaluation - now status post surgery Status post mechanical fall Acute rip hip fracture - status post hemiarthroplasty 12/15/2016 Recent left lower extremity deep vein thrombosis Abnormal EKG - RBBB and LAFB, but no acute ischemic changes History of myocardial infarction - details unknown, denies prior coronary stenting or angioplasty History of stroke Chronic kidney disease Benign prostate hyperplasia Recommendations: -continue Eliquis Problems: Consultation Date/Type/Reason Admit Date/Time Dec 13, 2016 at 21:47 Type of Consultation: Cardiology 24 HR Interval Summary Free Text/Dictation No acute events. Has been working with physical therapy. Detailed Summary Additional Comments 14 point review of systems without changes. Exam/Review of Systems Vital Signs Vitals Vital Signs Date Time Temp Pulse Resp B/P Pulse Ox O2 Delivery O2 Flow Rate FiO2 12/19/16 07:51 97.9 77 18 126/67 95 12/16/16 21:51 21 12/16/16 17:53 3.0 12/16/16 08:00 Nasal Cannula Intake and Output 12/18/16 12/18/16 12/19/16 15:00 23:00 07:00 Intake Total 1000 ml 480 ml Output Total 800 ml Balance 200 ml 480 ml Exam Constitutional: alert, well developed Psych: nl mood/affect, no complaints Head: atraumatic, normocephalic Eyes: nl conjunctiva, nl lids ENMT: nl external ears & nose, nl nasal mucosa & septum Neck: non-tender, supple, No jvd Respiratory: clear to auscultation, normal air movement Cardiovascular: regular rate and rhythm, No murmurs/extra sounds Gastrointestinal: non-tender, soft Extremities: No clubbing, No cyanosis, No edema Results Result Diagram: 12/19/16 0454 12/19/16 0454 Results 24 hrs Laboratory Tests Test 12/19/16 04:54 12/19/16 14:05 White Blood Count 9.5 Red Blood Count 3.12 L Hemoglobin 10.7 L Hematocrit 31.7 L Mean Corpuscular Volume 101.6 H Mean Corpuscular Hemoglobin 34.3 H Mean Corpuscular Hemoglobin Concent 33.8 Red Cell Distribution Width 14.7 H Platelet Count 209 # Mean Platelet Volume 11.5 H Neutrophils % 63.6 Lymphocytes % 23.1 Monocytes % 9.3 Eosinophils % 2.5 Basophils % 0.5 Nucleated Red Blood Cells % 0.0 Neutrophils # 6.0 Lymphocytes # 2.2 Monocytes # 0.9 Eosinophils # 0.2 Basophils # 0.1 Nucleated Red Blood Cells # 0.0 Sodium Level 139 Potassium Level 4.3 Chloride Level 102 Carbon Dioxide Level 26 Anion Gap 15 Blood Urea Nitrogen 25 H Creatinine 1.25 H Glucose Level 106 Calcium Level 8.7 Urine Color LT. YELLOW Urine Clarity CLEAR Urine pH 6.5 Urine Specific [employer] 1.010 Urine Ketones NEGATIVE Urine Nitrite NEGATIVE Urine Bilirubin NEGATIVE Urine Urobilinogen 1.0 E.U./dL Urine Leukocyte Esterase NEGATIVE Urine Hemoglobin NEGATIVE Urine Glucose NEGATIVE Urine Total Protein NEGATIVE Medications Medications Current Medications Allopurinol (Zyloprim) 300 mg DAILY PO Last administered on 12/19/16 08:46; Admin Dose 300 MG; Start 12/14/16 at 09:00 Ergocalciferol (Drisdol) 50,000 unit Q7D PO Last administered on 12/14/16 09:51 ; Admin Dose 50,000 UNIT; Start 12/14/16 at 09:00 Finasteride (Proscar) 5 mg DAILY PO Last administered on 12/19/16 08:46; Admin Dose 5 MG; Start 12/14/16 at 09:00 Gabapentin (Neurontin) 300 mg QHS PO Last administered on 12/18/16 20:52; Admin Dose 300 MG; Start 12/14/16 at 21:00 Latanoprost (Xalatan) 1 drop QHS LEFT EYE Last administered on 12/18/16 21:00; Admin Dose 1 DROP; Start 12/14/16 at 21:00 Prednisolone Acetate (Pred-Forte 1%) 1 drop DAILY RIGHT EYE Last administered on 12/19/16 08:47; Admin Dose 1 DROP; Start 12/14/16 at 09:00 Tamsulosin HCl (Flomax) 0.4 mg DAILY@21 PO Last administered on 12/18/16 20:52 ; Admin Dose 0.4 MG; Start 12/14/16 at 21:00 Tramadol HCl (Ultram) 50 mg Q6H PRN PO PAIN; Start 12/14/16 at 01:30 Nicotine (Nicoderm 21 Mg/ 24hr) 1 patch DAILY TRANSDERM Last administered on 08:47; Admin Dose 1 PATCH; Start 12/14/16 at 09:00 Ondansetron HCl (Zofran Inj) 4 mg Q6H PRN IV NAUSEA AND/OR VOMITING Last administered on 12/15/16 19:08; Admin Dose 4 MG; Start 12/14/16 at 01:30 Apixaban (Eliquis) 5 mg DAILY PO Last administered on 12/19/16 08:46; Admin Dose 5 MG; Start 12/14/16 at 09:00; Status Future hold Bisacodyl (Dulcolax Supp) 10 mg DAILY PRN [place] CONSTIPATION; Start 12/14/16 at 03: 30 Fish Oil (Fish Oil) 2,000 mg BID PO Last administered on 12/19/16 08:46; Admin Dose 2,000 MG; Start 12/14/16 at 21:00 Bisacodyl (Dulcolax) 10 mg DAILY PRN PO CONSTIPATION Last administered on 09:17; Admin Dose 10 MG; Start 12/14/16 at 15:00 Morphine Sulfate (morphine) 4 mg Q4H PRN IV pain Last administered on 12/15/16 08:06; Admin Dose 4 MG; Start 12/15/16 at 03:30 Oxycodone/ Acetaminophen (Percocet (5/ 325)) 1 tab Q4H PRN PO PAIN LEVEL 1-3 Last administered on 12/19/16 19:42; Admin Dose 1 TAB; Start 12/15/16 at 19:00 Hydromorphone HCl (Dilaudid) 0.4 mg Q3H PRN IV PAIN Last administered on 02:23; Admin Dose 0.4 MG; Start 12/16/16 at 02:30 Docusate Sodium (Colace) 100 mg BID PO Last administered on 12/19/16 08:46; Admin Dose 100 MG; Start 12/16/16 at 21:00 Temazepam (Restoril) 7.5 mg HS PRN PO INSOMNIA; Start 12/18/16 at 20:30 Temazepam (Restoril) 15 mg HS PO ; Start 12/19/16 at 21:00 JHONY WIGGINS MD Dec 19, 2016 19:54
[2016-12-19] MEDS: GABAPENTIN 300 MG CAP PO SCH (20:58)
[2016-12-19] MEDS: TAMSULOSIN (SR) 0.4 MG CAP PO SCH (20:58)
[2016-12-19] MEDS: TEMAZEPAM 15 MG CAP PO SCH (20:58)
[2016-12-19] MEDS: LATANOPROST 0.005% 2.5 ML OPH LEFT EYE SCH (21:00)
[2016-12-20 09:01] VITALS: BP 132/64; RESP 18
[2016-12-20] MEDS: PREDNISOLONE ACET 1% 5 ML OPH RIGHT EYE SCH ×2 (09:04→20:27)
[2016-12-20] MEDS: APIXABAN 5 MG TABLET PO SCH (09:04)
[2016-12-20] MEDS: DOCUSATE SODIUM 100 MG CAP PO SCH ×2 (09:04→20:27)
[2016-12-20] MEDS: FISH OIL 1,000 MG CAP PO SCH ×2 (09:04→20:26)
[2016-12-20] MEDS: ALLOPURINOL 300 MG TAB PO SCH (09:04)
[2016-12-20] MEDS: FINASTERIDE 5 MG TAB PO SCH (09:04)
[2016-12-20] MEDS: NICOTINE (21 MG/24 HR) PATCH TRANSDERM SCH (09:04)
[2016-12-20] MEDS: OXYCODONE/ACETAMINOPHEN (5/325) TAB PO PRN ×2 (09:58→19:45)
[2016-12-20] MEDS ORDERED: POLY17PO6 PO (10:12)
[2016-12-20] MEDS ORDERED: DOCU-216 PO (10:12)
--- NOTE | 2016-12-20 15:46 | CONS ---
Date/Time of Note Date/Time of Note DATE: 12/20/16 TIME: 15:45 Assessment/Plan Assessment/Plan Chief Complaint/Hosp Course Assessment: Pre-operative cardiac evaluation - now status post surgery Status post mechanical fall Acute rip hip fracture - status post hemiarthroplasty 12/15/2016 Recent left lower extremity deep vein thrombosis Abnormal EKG - RBBB and LAFB, but no acute ischemic changes History of myocardial infarction - details unknown, denies prior coronary stenting or angioplasty History of stroke Chronic kidney disease Benign prostate hyperplasia Recommendations: -continue Eliquis -discharge planning per primary team -will follow up as needed Problems: Consultation Date/Type/Reason Admit Date/Time Dec 13, 2016 at 21:47 Type of Consultation: Cardiology 24 HR Interval Summary Free Text/Dictation No acute events. Detailed Summary Additional Comments 14 point review of systems without changes. Exam/Review of Systems Vital Signs Vitals Vital Signs Date Time Temp Pulse Resp B/P Pulse Ox O2 Delivery O2 Flow Rate FiO2 12/20/16 09:01 97.9 91 18 132/64 92 12/16/16 21:51 21 12/16/16 17:53 3.0 12/16/16 08:00 Nasal Cannula Intake and Output 12/19/16 12/19/16 12/20/16 15:00 23:00 07:00 Intake Total 720 ml 850 ml Output Total 800 ml 700 ml Balance -80 ml 150 ml Exam Constitutional: alert, well developed Psych: nl mood/affect, no complaints Head: atraumatic, normocephalic Eyes: nl conjunctiva, nl lids ENMT: nl external ears & nose, nl nasal mucosa & septum Neck: non-tender, supple, No jvd Respiratory: clear to auscultation, normal air movement Cardiovascular: regular rate and rhythm, No murmurs/extra sounds Gastrointestinal: non-tender, soft Extremities: No clubbing, No cyanosis, No edema Results Result Diagram: 12/19/16 0454 12/19/16 0454 Medications Medications Current Medications Allopurinol (Zyloprim) 300 mg DAILY PO Last administered on 12/20/16 09:04; Admin Dose 300 MG; Start 12/14/16 at 09:00 Ergocalciferol (Drisdol) 50,000 unit Q7D PO Last administered on 12/14/16 09:51 ; Admin Dose 50,000 UNIT; Start 12/14/16 at 09:00 Finasteride (Proscar) 5 mg DAILY PO Last administered on 12/20/16 09:04; Admin Dose 5 MG; Start 12/14/16 at 09:00 Gabapentin (Neurontin) 300 mg QHS PO Last administered on 12/19/16 20:58; Admin Dose 300 MG; Start 12/14/16 at 21:00 Latanoprost (Xalatan) 1 drop QHS LEFT EYE Last administered on 12/19/16 21:00; Admin Dose 1 DROP; Start 12/14/16 at 21:00 Prednisolone Acetate (Pred-Forte 1%) 1 drop DAILY RIGHT EYE Last administered on 12/20/16 09:04; Admin Dose 1 DROP; Start 12/14/16 at 09:00 Tamsulosin HCl (Flomax) 0.4 mg DAILY@21 PO Last administered on 12/19/16 20:58 ; Admin Dose 0.4 MG; Start 12/14/16 at 21:00 Tramadol HCl (Ultram) 50 mg Q6H PRN PO PAIN; Start 12/14/16 at 01:30 Nicotine (Nicoderm 21 Mg/ 24hr) 1 patch DAILY TRANSDERM Last administered on 09:04; Admin Dose 1 PATCH; Start 12/14/16 at 09:00 Ondansetron HCl (Zofran Inj) 4 mg Q6H PRN IV NAUSEA AND/OR VOMITING Last administered on 12/15/16 19:08; Admin Dose 4 MG; Start 12/14/16 at 01:30 Apixaban (Eliquis) 5 mg DAILY PO Last administered on 12/20/16 09:04; Admin Dose 5 MG; Start 12/14/16 at 09:00; Status Future hold Bisacodyl (Dulcolax Supp) 10 mg DAILY PRN [place] CONSTIPATION; Start 12/14/16 at 03: 30 Fish Oil (Fish Oil) 2,000 mg BID PO Last administered on 12/20/16 09:04; Admin Dose 2,000 MG; Start 12/14/16 at 21:00 Bisacodyl (Dulcolax) 10 mg DAILY PRN PO CONSTIPATION Last administered on 09:17; Admin Dose 10 MG; Start 12/14/16 at 15:00 Morphine Sulfate (morphine) 4 mg Q4H PRN IV pain Last administered on 12/15/16 08:06; Admin Dose 4 MG; Start 12/15/16 at 03:30 Oxycodone/ Acetaminophen (Percocet (5/ 325)) 1 tab Q4H PRN PO PAIN LEVEL 1-3 Last administered on 12/20/16 09:58; Admin Dose 1 TAB; Start 12/15/16 at 19:00 Hydromorphone HCl (Dilaudid) 0.4 mg Q3H PRN IV PAIN Last administered on 02:23; Admin Dose 0.4 MG; Start 12/16/16 at 02:30 Docusate Sodium (Colace) 100 mg BID PO Last administered on 12/20/16 09:04; Admin Dose 100 MG; Start 12/16/16 at 21:00 Temazepam (Restoril) 7.5 mg HS PRN PO INSOMNIA; Start 12/18/16 at 20:30 Temazepam (Restoril) 15 mg HS PO Last administered on 12/19/16 20:58; Admin Dose 15 MG; Start 12/19/16 at 21:00 JHONY WIGGINS MD Dec 20, 2016 15:45
[2016-12-20] MEDS ORDERED: RES15 PO (16:35)
--- NOTE | 2016-12-20 16:35 | EN ---
Date/Time of Note Date/Time of Note DATE: 12/20/16 TIME: 16:33 Event Note Medicine Medicine Event Note PROGRESS NOTE DATE OF SERVICE: 12/19/16 SUBJECTIVE: poor night's sleep OBJECTIVE: ital Signs Vitals Vital Signs Date Time Temp Pulse Resp B/P Pulse Ox O2 Delivery O2 Flow Rate FiO2 12/19/16 07:51 97.9 77 18 126/67 95 12/16/16 21:51 21 12/16/16 17:53 3.0 12/16/16 08:00 Nasal Cannula Intake and Output 12/18/16 12/18/16 12/19/16 15:00 23:00 07:00 Intake Total 1000 ml 480 ml Output Total 800 ml Balance 200 ml 480 ml Exam Constitutional: alert, well developed Psych: nl mood/affect, no complaints Head: atraumatic, normocephalic Eyes: nl conjunctiva, nl lids ENMT: nl external ears & nose, nl nasal mucosa & septum Neck: non-tender, supple, No jvd Respiratory: clear to auscultation, normal air movement Cardiovascular: regular rate and rhythm, No murmurs/extra sounds Gastrointestinal: non-tender, soft Extremities: No clubbing, No cyanosis, No edema Results Result Diagram: 12/19/16 0454 12/19/16 0454 Results 24 hrs Laboratory Tests Test 12/19/16 04:54 12/19/16 14:05 White Blood Count 9.5 Red Blood Count 3.12 L Hemoglobin 10.7 L Hematocrit 31.7 L Mean Corpuscular Volume 101.6 H Mean Corpuscular Hemoglobin 34.3 H Mean Corpuscular Hemoglobin Concent 33.8 Red Cell Distribution Width 14.7 H Platelet Count 209 # Mean Platelet Volume 11.5 H Neutrophils % 63.6 Lymphocytes % 23.1 Monocytes % 9.3 Eosinophils % 2.5 Basophils % 0.5 Nucleated Red Blood Cells % 0.0 Neutrophils # 6.0 Lymphocytes # 2.2 Monocytes # 0.9 Eosinophils # 0.2 Basophils # 0.1 Nucleated Red Blood Cells # 0.0 Sodium Level 139 Potassium Level 4.3 Chloride Level 102 Carbon Dioxide Level 26 Anion Gap 15 Blood Urea Nitrogen 25 H Creatinine 1.25 H Glucose Level 106 Calcium Level 8.7 Urine Color LT. YELLOW Urine Clarity CLEAR Urine pH 6.5 Urine Specific [place] 1.010 Urine Ketones NEGATIVE Urine Nitrite NEGATIVE Urine Bilirubin NEGATIVE Urine Urobilinogen 1.0 E.U./dL Urine Leukocyte Esterase NEGATIVE Urine Hemoglobin NEGATIVE Urine Glucose NEGATIVE Urine Total Protein NEGATIVE Medications Medications Current Medications Allopurinol (Zyloprim) 300 mg DAILY PO Last administered on 12/19/16 08:46; Admin Dose 300 MG; Start 12/14/16 at 09:00 Ergocalciferol (Drisdol) 50,000 unit Q7D PO Last administered on 12/14/16 09:51 ; Admin Dose 50,000 UNIT; Start 12/14/16 at 09:00 Finasteride (Proscar) 5 mg DAILY PO Last administered on 12/19/16 08:46; Admin Dose 5 MG; Start 12/14/16 at 09:00 Gabapentin (Neurontin) 300 mg QHS PO Last administered on 12/18/16 20:52; Admin Dose 300 MG; Start 12/14/16 at 21:00 Latanoprost (Xalatan) 1 drop QHS LEFT EYE Last administered on 12/18/16 21:00; Admin Dose 1 DROP; Start 12/14/16 at 21:00 Prednisolone Acetate (Pred-Forte 1%) 1 drop DAILY RIGHT EYE Last administered on 12/19/16 08:47; Admin Dose 1 DROP; Start 12/14/16 at 09:00 Tamsulosin HCl (Flomax) 0.4 mg DAILY@21 PO Last administered on 12/18/16 20:52 ; Admin Dose 0.4 MG; Start 12/14/16 at 21:00 Tramadol HCl (Ultram) 50 mg Q6H PRN PO PAIN; Start 12/14/16 at 01:30 Nicotine (Nicoderm 21 Mg/ 24hr) 1 patch DAILY TRANSDERM Last administered on 08:47; Admin Dose 1 PATCH; Start 12/14/16 at 09:00 Ondansetron HCl (Zofran Inj) 4 mg Q6H PRN IV NAUSEA AND/OR VOMITING Last administered on 12/15/16 19:08; Admin Dose 4 MG; Start 12/14/16 at 01:30 Apixaban (Eliquis) 5 mg DAILY PO Last administered on 12/19/16 08:46; Admin Dose 5 MG; Start 12/14/16 at 09:00; Status Future hold Bisacodyl (Dulcolax Supp) 10 mg DAILY PRN [place] CONSTIPATION; Start 12/14/16 at 03: 30 Fish Oil (Fish Oil) 2,000 mg BID PO Last administered on 12/19/16 08:46; Admin Dose 2,000 MG; Start 12/14/16 at 21:00 Bisacodyl (Dulcolax) 10 mg DAILY PRN PO CONSTIPATION Last administered on 09:17; Admin Dose 10 MG; Start 12/14/16 at 15:00 Morphine Sulfate (morphine) 4 mg Q4H PRN IV pain Last administered on 12/15/16 08:06; Admin Dose 4 MG; Start 12/15/16 at 03:30 Oxycodone/ Acetaminophen (Percocet (5/ 325)) 1 tab Q4H PRN PO PAIN LEVEL 1-3 Last administered on 12/19/16 19:42; Admin Dose 1 TAB; Start 12/15/16 at 19:00 Hydromorphone HCl (Dilaudid) 0.4 mg Q3H PRN IV PAIN Last administered on 02:23; Admin Dose 0.4 MG; Start 12/16/16 at 02:30 Docusate Sodium (Colace) 100 mg BID PO Last administered on 12/19/16 08:46; Admin Dose 100 MG; Start 12/16/16 at 21:00 Temazepam (Restoril) 7.5 mg HS PRN PO INSOMNIA; Start 12/18/16 at 20:30 Temazepam (Restoril) 15 mg HS PO ; Start 12/19/16 at 21:00 ASSESSMENT: IMPRESSION 1. Right HIP fracture s/p Hemiarthroplasty of the right hip 12/15/16 2. Acute kidney injury r/o CKD 3. CAD s/p NE 4. History of CVA 5. History of BPH 6. Acute Rhabdomyolysis 7. 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 Recent left lower extremity deep vein thrombosis 9. Chronic Gout 10. Constipation: improved PLAN * Continue supportive and routine post op care * Resume eliquis once cleared by surgery * Continue PRN pain control/ antiemetics/ antipyretics/ supportive care * Insurance denied ARU, family requesting SNF placement Visit time >35mins ROBE HALL Dec 20, 2016 16:35
--- NOTE | 2016-12-20 16:39 | DS ---
Date/Time of Note Date/Time of Note DATE: 12/20/16 TIME: 16:36 Discharge Summary Admission/Discharge Info Admit Date/Time Dec 13, 2016 at 21:47 Discharge Date/Time 12/20/16 Final Diagnosis 1. Right HIP fracture s/p Hemiarthroplasty of the right hip 12/15/16 2. Acute kidney injury r/o CKD 3. CAD s/p GA 4. History of CVA 5. History of BPH 6. Acute Rhabdomyolysis 7. 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 Recent left lower extremity deep vein thrombosis 9. Chronic Gout 10. Constipation: resolved Patient Condition: Stable Consults * Rio Woody: Surgery * Bryan Odonnell: Cardiology . Hx of Present Illness This is an 86-year-old male with hx of CVA, BPH, CKD, GA, CKD who presents to the emergency room for evaluation of right-sided leg pain after a ground-level fall he had this morning. The patient denies any head injury loss of consciousness. The patient states that he is having an achy pain in the right hip worse with movement of the hip. In the ER, imaging showed Right Hip fracture. . Hospital Course Patient was admitted and underwent hemiarthroplasty 12/15/16. His post op course was unremarkable. We tried to get himinto acute rehab, but his insurance denied that and so he was kept inhouse until he was stable enough to be discharged home with HH. His eliquis was also held until it was safe to resume. he was followed closely by cardiology as well. Comorbidities were also aggressively managed as per Med records. Patient at this time has been evaluated and examined in detail and is assessed to be in stable condition and ready for discharge. Time spent on final evaluation and assessment, discharge planning, counselling and coordination has been >40mins. Home Meds Active Scripts Apixaban* (Eliquis*) 5 Mg Tablet, 5 MG PO BID for 30 Days, TAB 2 Refills Prov:ISABELRAMBOO M. 12/20/16 Temazepam (Restoril) 15 Mg Cap, 15 MG PO HS Y for INSOMNIA, #30 CAP Prov:ISABELKELLIEATITO M. 12/20/16 Polyethylene Glycol* (Miralax*) 17 Gm Powd.pack, 8.5 GM PO DAILY, #30 PACKET Prov:ISABEL,ROBE Ansari. 12/20/16 Docusate Sodium (Dok) 100 Mg Capsule, 250 MG PO DAILY, #30 CAP 2 Refills Prov:ROBE HALL. 12/20/16 Reported Medications Prednisolone Acetate* (Pred Forte*) 5 Ml Susp, 1 DROP RIGHT EYE DAILY, EA 12/13/16 Latanoprost (Latanoprost) 2.5 Ml Drops, 1 DROP LEFT EYE QHS, #1 BOTTLE 12/13/16 [place]-3 Acid Ethyl Esters (Lovaza) 1 Gm Capsule, 1 GM PO BID, CAP 12/13/16 Finasteride* (Finasteride*) 5 Mg Tablet, 5 MG PO DAILY, TAB 12/13/16 Gabapentin* (Gabapentin*) 300 Mg Capsule, 300 MG PO QHS, #30 CAP 12/13/16 Tramadol Hcl* (Ultram*) 50 Mg Tablet, 50 MG PO Q6H Y for PAIN, TAB 12/13/16 Ergocalciferol (Vitamin D2) (VITAMIN D2) 50,000 Unit Capsule, 24769 UNIT PO Q7D , CAP 12/13/16 Tamsulosin Hcl* (Tamsulosin Hcl*) 0.4 Mg Cap.er.24h, 0.4 MG PO DAILY, CAP 12/13/16 Allopurinol* (Allopurinol*) 300 Mg Tablet, 300 MG PO DAILY, TAB 12/13/16 Discontinued Reported Medications Bisacodyl* (Bisacodyl*) 10 Mg Supp, 10 MG HI DAILY, SUPP 12/13/16 Follow-up Plan Followup with your primary doctor within the next 1-2 weeks. If you don't have one please let someone know, we can give you resources that may help you pick one. You may call Dr Beck Montanez's office. he's accepting new patients Name, Degree: Beck Montanez MD Specialty: Internal Medicine Comments: Office Address: [address] [place] [address] Office Office You may also call your insurance company to assign one to you. Review your medication list with your nurse before leaving and if you need new prescriptions please let your nurse know. I may have made changes to your home medications or given you new prescriptions , please let your primary doctor know as well. Stay compliant with your medications and report any side effects to your PCP or pharmacist. Return to the ER if you have any concerns and cannot reach your doctors or call your insurance company, they usually have a nurse that can help you. ROBE HALL. Dec 20, 2016 16:39
--- NOTE | 2016-12-20 16:48 | PN ---
DATE: 12/20/2016 The patient is afebrile. Had been up with physical therapy. Was not accepted to acute rehab unit. Okay to be discharged from an ortho point. The dressings were changed and incision was clean and d ry. To ortho in 2 weeks for follow up as an outpatient including the removal of the cony. Dictated By: RENE REESE/CHAYO Conf#: [id number] DID#: [id number]
[2016-12-20] MEDS ORDERED: APIX5TAB PO (17:04)
[2016-12-20 20:02] VITALS: BP 119/59; RESP 20
[2016-12-20] MEDS: TEMAZEPAM 15 MG CAP PO SCH (20:27)
[2016-12-20] MEDS: TAMSULOSIN (SR) 0.4 MG CAP PO SCH (20:27)
[2016-12-20] MEDS: GABAPENTIN 300 MG CAP PO SCH (20:27)
[2016-12-20] MEDS: LATANOPROST 0.005% 2.5 ML OPH LEFT EYE SCH (20:31)
== END 2016-12-20 20:30 | disposition home health service (06) | DRG 470 ==
LOC: E/R 19:58 → MS1 21:47
PROVIDERS: ADMIT Internal Medicine; ATTEND Internal Medicine
PROC: 0SRR01Z Replacement of Right Hip Joint, Femoral Surface with Metal Synthetic Substitute, Open Approach (ICD-10-PCS; principal; 2016-12-15 15:00)
DX: S72.001A Fracture of unspecified part of neck of right femur, initial encounter for closed fracture (principal); N17.9 Acute kidney failure, unspecified; M62.82 Rhabdomyolysis; D69.6 Thrombocytopenia, unspecified; I45.2 Bifascicular block; N18.3 Chronic kidney disease, stage 3 (moderate); I82.442 Acute embolism and thrombosis of left tibial vein; I25.10 Atherosclerotic heart disease of native coronary artery without angina pectoris; I25.2 Old myocardial infarction; Z86.73 Personal history of transient ischemic attack (TIA), and cerebral infarction without residual deficits; N40.0 Benign prostatic hyperplasia without lower urinary tract symptoms; M1A.9XX0 Chronic gout, unspecified, without tophus (tophi); K59.00 Constipation, unspecified; W01.0XXA Fall on same level from slipping, tripping and stumbling without subsequent striking against object, initial encounter; Y93.89 Activity, other specified; Y92.019 Unspecified place in single-family (private) house as the place of occurrence of the external cause; I12.9 Hypertensive chronic kidney disease with stage 1 through stage 4 chronic kidney disease, or unspecified chronic kidney disease; F17.210 Nicotine dependence, cigarettes, uncomplicated; F10.10 Alcohol abuse, uncomplicated; D53.1 Other megaloblastic anemias, not elsewhere classified
CPT/HCPCS: 36415; 71010; 72170; 73500; 73510; 80048; 80053; 81003; 82550; 82553; 83735; 84100; 84484; 85014; 85018; 85025; 85610; 85730; 86850; 86900; 86901; 86920; 87086; 88304; 88311; 93005; 96374; 97110; 97116; 97162; 97530; C1776; J0131; J0360; J0690; J1100; J1170; J1644; J2270; J2370; J2405; J2710; J3010; J3480; J7030; J7042